=== PATIENT | female | born 1990 | race Caucasian/White ===

== ENCOUNTER 2016-07-23 20:03 | Emergency (ER) | payer MEDICAID ==
[~2016-07-23] VITALS: Ht 170.2 cm; Wt 87.5 kg
[~2016-07-23 20:03] MED LIST: ACHYD1T PO; AZIT-21 PO; DCS100C PO; DEPO-PROVERA; DESV50TA; GARDASIL; HYDR-3812 PO; IBP600T1 PO; IBP800T PO; MUPI22OI29 EXT; NAPR500T PO; NIFE20CA PO; NITR100C3 PO; OSLT75C PO; PRD20T PO; PREN1TAB4 PO
--- NOTE | 2016-07-23 20:46 | ED Abdominal Pain ---
General Chief Complaint: Abdominal/GI Problems Stated Complaint: AB PAIN NAUSEA Nursing Triage Note: intermittant luq abdominal pain since 07/19/16. worse tonight. Sepsis Screen: No Definite Risk Source of Information: Patient, RN Notes Reviewed Exam Limitations: No Limitations History of Present Illness Time Seen By Provider: 20:45 Initial Comments As above. Timing/Duration: 3-4 Days Severity/Quality: Moderate, Sharp, Stabbing Location: LUQ Radiation: No Radiation Activities at Onset: None Modifying Factors: Improves With Other (nothing) Associated Symptoms: Other ((+) nausea) Allergies and Home Medications Allergies Coded Allergies: cephalexin (Unverified Allergy, Mild, 03/15/09) Home Medications Ciprofloxacin HCl 500 Mg Tablet #14 500 MG PO BID Prescribed by: ARNIE MAY on 07/23/162216 Naproxen Sodium 550 Mg Tablet #20 550 MG PO Q12H PRN PRN PAIN Prescribed by: ARNIE MAY on 07/23/162216 Review of Systems Constitutional: see HPI Gastrointestinal: See HPI Abdominal Pain (LUQ) All Other Systems Reviewed Negative Unless Noted: Yes (Negative excepted noted.) Past Vyvwxjh-Fkcvgz-Laxraq Hx Patient Social History Alcohol Use: Occasionally Uses Recreational Drug Use: No Smoking Status: Former Smoker Type Used: Cigarettes Former Smoker/When Quit: Jun 02, 2012 Recent Foreign Travel: No Contact w/Someone Who Travel: No Recent Infectious Disease Expo: No Recent Hopitalizations: No Physical Abuse Screen: No Sexual Abuse: No Immunizations Up To Date Tetanus Booster (TDap): Unknown Date of Influenza Vaccine: May 07, 2012 Seasonal Allergies Seasonal Allergies: No Surgeries HX Surgeries: Yes (wisdom teeth) Surgeries: Section Respiratory Hx Respiratory Disorders: No Cardiovascular Hx Cardiac Disorders: No Neurological Hx Neurological Disorders: Yes Neurological Disorders: Headaches /Migraines Reproductive System : No Hx Reproductive Disorders: No (PID) Sexually Transmitted Disease: No Genitourinary Hx Genitourinary Disorders: No Gastrointestinal Hx Gastrointestinal Disorders: Yes Gastrointestinal Disorders: Gastroesophageal Reflux Musculoskeletal Hx Musculoskeletal Disorders: Yes (CHRONIC KNEE PAIN) Endocrine Hx Endocrine Disorders: Yes (Hypoglycemic) HEENT HX ENT Disorders: Yes Hearing Impairment: Hearing Aide Right Cancer Hx Cancer: No Psychosocial Hx Psychiatric Problems: Yes Behavioral Health Disorders: Anxiety Integumentary HX Skin/Integumentary Disorder: No Blood Transfusions Hx Blood Disorders: No Adverse Reaction to a Blood Tr: No Family Medical History Significant Family History: No Pertinent Family Hx, Cancer, Diabetes Physical Exam Vital Signs VS - Last 72 Hours, by Label 07/23/16 07/23/16 20:36 22:25 Temp 96.5 97.7 Pulse 81 68 Resp 18 16 B/P 126/59 Pulse Ox 99 99 O2 Delivery Room Air Room Air Capillary Refill : Less Than 3 Seconds General Appearance: WD/WN no apparent distress obese Respiratory: no respiratory distress Cardiovascular: regular rate, rhythm Gastrointestinal: softNo guarding, No rebound, tenderness (LUQ) Rectal: deferred Back: CVA tenderness (L) Neurologic/Psychiatric: no motor/sensory deficits alert oriented x 3 Skin: warm/dry Progress/Results/Core Measures Results/Orders Lab Results Laboratory Tests Test 07/23/16 21:00 Range/Units Alanine Aminotransferase (ALT/SGPT) 33 0-55 U/L Albumin 4.0 3.2-4.5 G/DL Alkaline Phosphatase 53 40-136 U/L Anion Gap 7 5-14 MMOL/L Aspartate Amino Transf (AST/SGOT) 18 5-34 U/L BUN/Creatinine Ratio 12 Basophils # (Auto) 0.0 0.0-0.1 10^3/uL Basophils (%) (Auto) 0 0-10 % Blood Urea Nitrogen 9 7-18 MG/DL Calcium Level 8.9 8.5-10.1 MG/DL Carbon Dioxide Level 22 21-32 MMOL/L Chloride Level 109 H 98-107 MMOL/L Creatinine 0.75 0.60-1.30 MG/DL Eosinophils # (Auto) 0.1 0.0-0.3 10^3/uL Eosinophils (%) (Auto) 2 0-10 % Estimat Glomerular Filtration Rate > 60 Glucose Level 106 H 70-105 MG/DL Hematocrit 39 35-52 % Hemoglobin 13.4 11.5-16.0 G/DL Lipase 26 8-78 U/L Lymphocytes # (Auto) 2.6 1.0-4.0 X 10^3 Lymphocytes (%) (Auto) 29 12-44 % Mean Corpuscular Hemoglobin 30 25-34 PG Mean Corpuscular Hemoglobin Concent 34 32-36 G/DL Mean Corpuscular Volume 86 80-99 FL Mean Platelet Volume 9.6 7.4-10.4 FL Monocytes # (Auto) 0.6 0.0-1.0 X 10^3 Monocytes (%) (Auto) 7 0-12 % Neutrophils # (Auto) 5.4 1.8-7.8 X 10^3 Neutrophils (%) (Auto) 62 42-75 % Platelet Count 254 130-400 10^3/uL Potassium Level 3.5 L 3.6-5.0 MMOL/L Red Blood Count 4.54 4.35-5.85 10^6/uL Red Cell Distribution Width 13.2 10.0-14.5 % Sodium Level 138 135-145 MMOL/L Total Bilirubin 0.4 0.1-1.0 MG/DL Total Protein 6.3 L 6.4-8.2 G/DL Urine Bacteria MODERATE H /HPF Urine Bilirubin NEGATIVE NEGATIVE Urine Casts NONE /LPF Urine Clarity SLIGHTLY CLOUDY Urine Color YELLOW Urine Crystals NONE /LPF Urine Culture Indicated YES Urine Glucose (UA) NEGATIVE NEGATIVE Urine Ketones NEGATIVE NEGATIVE Urine Leukocyte Esterase 3+ H NEGATIVE Urine Mucus NEGATIVE /LPF Urine Nitrite NEGATIVE NEGATIVE Urine Test NEGATIVE NEGATIVE Urine Protein NEGATIVE NEGATIVE Urine RBC NONE /HPF Urine RBC (Auto) NEGATIVE NEGATIVE Urine Specific [place] 1.010 L 1.016-1.022 Urine Squamous Epithelial Cells 25-50 H /HPF Urine Urobilinogen NORMAL NORMAL MG/DL Urine WBC 10-25 H /HPF Urine pH 8 5-9 White Blood Count 8.7 4.3-11.0 10^3/uL My Orders Orders-ARNIE MAY DO Saline Lock/Iv-Start (07/23/16 20:46) Cbc With Automated Diff (07/23/16 20:46) Comprehensive Metabolic Panel (07/23/16 20:46) Hcg,Qualitative Urine (07/23/16 20:46) Lipase (07/23/16 20:46) Ua Culture If Indicated (07/23/16 20:46) Urine Culture (07/23/16 21:00) Ketorolac Injection (Toradol Injection) (07/23/16 22:15) Ciprofloxacin Tablet (Cipro Tablet) (07/23/16 22:14) Medications Given in ED Current Medications Medications Dose Ordered Sig/Kathrine Route Start Time Stop Time Status Last Admin Dose Admin Ketorolac Tromethamine 30 mg ONCE ONCE IVP 07/23/16 22:15 07/23/16 22:16 DC 07/23/16 22:24 30 MG Vital Signs/I&O Vital Sign - Last 12Hours 07/23/16 07/23/16 20:36 22:25 Temp 96.5 97.7 Pulse 81 68 Resp 18 16 B/P 126/59 Pulse Ox 99 99 O2 Delivery Room Air Room Air Blood Pressure Mean: 81 Departure Impression Impression: Primary Impression: LUQ abdominal pain Additional Impression: UTI (urinary tract infection) Disposition: HOME, SELF-CARE Condition: Stable Departure-Patient Inst. Decision time for Depature: 22:18 Referrals: [facility] (PCP/Family) Primary Care Physician Patient Instructions: Urinary Tract Infection, Adult (DC) Scripts Naproxen Sodium (Anaprox Ds)550 Mg [id number] Mg PO Q12H PRN PAIN #20 TAB Ref 0 Prov:ARNIE MAY DO 07/23/16 Ciprofloxacin HCl (Cipro)500 Mg [id number] Mg PO BID UTI #14 TAB Ref 0 Prov:ARNIE MAY DO 07/23/16 ARNIE MAY DO Jul 23, 2016 20:46
[2016-07-23 21:17] LABS: BASOPHILS % (AUTO) 0 % (0-10); EOSINOPHILS # (AUTO) 0.1 10^3/uL (0.0-0.3); EOSINOPHILS % (AUTO) 2 % (0-10); LYMPHOCYTES # (AUTO) 2.6 X 10^3 (1.0-4.0); LYMPHOCYTES % (AUTO) 29 % (12-44); MEAN CORPUSCULAR HEMOGLOBIN 30 PG (25-34); MEAN CORPUSCULAR HGB CONC 34 G/DL (32-36); MEAN CORPUSCULAR VOLUME 86 FL (80-99); MEAN PLATELET VOLUME 9.6 FL (7.4-10.4); MONOCYTES # (AUTO) 0.6 X 10^3 (0.0-1.0); MONOCYTES % (AUTO) 7 % (0-12); NEUTROPHILS # (AUTO) 5.4 X 10^3 (1.8-7.8); NEUTROPHILS % (AUTO) 62 % (42-75); PLATELET COUNT 254 10^3/uL (130-400); RED BLOOD COUNT 4.54 10^6/uL (4.35-5.85); RED CELL DISTRIBUTION WIDTH 13.2 % (10.0-14.5); WHITE BLOOD COUNT 8.7 10^3/uL (4.3-11.0)
[2016-07-23 21:21] LABS: BILIRUBIN,URINE NEGATIVE (NEGATIVE); KETONES,URINE NEGATIVE (NEGATIVE); LEUKOCYTE ESTERASE ,URINE 3+ (NEGATIVE); NITRITE,URINE NEGATIVE (NEGATIVE); PH,URINE 8 (5-9); PROTEIN,URINE NEGATIVE (NEGATIVE); UROBILINOGEN,URINE NORMAL (NORMAL)
[2016-07-23 21:32] LABS: SQUAMOUS EPITHELIAL CELL,UR 25-50 /HPF
[2016-07-23 21:41] LABS: ALANINE AMINOTRANSFERASE 33 U/L (0-55); ANION GAP 7 MMOL/L (5-14); ASPARTATE AMINO TRANSFERASE 18 U/L (5-34); BILIRUBIN,TOTAL 0.4 MG/DL (0.1-1.0); BLOOD UREA NITROGEN 9 MG/DL (7-18); BUN/CREATININE RATIO 12; CALCIUM 8.9 MG/DL (8.5-10.1); CARBON DIOXIDE 22 MMOL/L (21-32); CHLORIDE 109 MMOL/L (98-107); CREATININE SERUM 0.75 MG/DL (0.60-1.30); GFR ESTIMATED > 60; GLUCOSE 106 MG/DL (70-105); LIPASE 26 U/L (8-78); POTASSIUM 3.5 MMOL/L (3.6-5.0); SODIUM 138 MMOL/L (135-145); TOTAL PROTEIN 6.3 G/DL (6.4-8.2)
[2016-07-23] MEDS ORDERED: CIPROFLOXACIN 500 MG (CIPRO) TABLET PO STA (22:14)
[2016-07-23] MEDS ORDERED: KETOROLAC 30 MG/ML VIAL IVP ONE (22:15)
[2016-07-23] MEDS ORDERED: NAPR550T PO (22:17)
[2016-07-23] MEDS ORDERED: CIPR-225 PO (22:17)
[2016-07-23 22:25] VITALS: BP 122/72
== END 2016-07-23 22:25 | disposition home or self-care (01) ==
LOC: EDUNIT# 20:03 → ER 20:06
DX: R10.12 Left upper quadrant pain (principal); N39.0 Urinary tract infection, site not specified
CPT/HCPCS: 36415; 80053; 81000; 83690; 84703; 85025; 87088; 96374

== ENCOUNTER 2017-01-20 21:48 | Emergency (ER) | payer MEDICAID ==
[~2017-01-20] VITALS: Ht 170.2 cm; Wt 87.7 kg
[~2017-01-20 21:48] MED LIST changes: +CIPR-225 PO; +NAPR550T PO
[2017-01-20] MEDS ORDERED: AMOX500C2 (21:57)
[2017-01-20] MEDS ORDERED: KETOROLAC 30 MG/ML VIAL IM ONE (22:15)
--- NOTE | 2017-01-20 22:16 | ED Lower Extremity ---
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 She was told to doesn't 8 she did some surgery for cartilage removal 1 with a surgeon but she got never underwent this. She has some swelling in her left knee and hasn't used ice and heating pads and 400 mg ibuprofen earlier today but this is all been marginally helpful. No other history of trauma. No nausea vomiting fever or chills diarrhea Allergies and Home Medications Allergies Coded Allergies: cephalexin (Unverified Allergy, Mild, 03/15/09) Home Medications Amoxicillin 500 Mg Capsule, #30 (Reported) Constitutional: No chills, No diaphoresis Respiratory: No cough, No short of breath Cardiovascular: No chest pain, No palpitations Gastrointestinal: No abdominal pain, No constipation Skin: No pruritus, No rash Past Csnvlre-Pognsx-Nalbtk Hx Patient Social History Alcohol Use: Occasionally Uses Recreational Drug Use: No Smoking Status: Former Smoker Type Used: Cigarettes Former Smoker/When Quit: Jun 02, 2012 Recent Foreign Travel: No Contact w/Someone Who Travel: No Recent Infectious Disease Expo: No Recent Hopitalizations: No Immunizations Up To Date Tetanus Booster (TDap): Unknown Date of Influenza Vaccine: May 07, 2012 Seasonal Allergies Seasonal Allergies: No Surgeries HX Surgeries: Yes (wisdom teeth) Surgeries: Section Respiratory Hx Respiratory Disorders: No Cardiovascular Hx Cardiac Disorders: No Neurological Hx Neurological Disorders: Yes Neurological Disorders: Headaches /Migraines Reproductive System Hx Reproductive Disorders: No (PID) Sexually Transmitted Disease: No Genitourinary Hx Genitourinary Disorders: No Gastrointestinal Hx Gastrointestinal Disorders: Yes Gastrointestinal Disorders: Gastroesophageal Reflux Musculoskeletal Hx Musculoskeletal Disorders: Yes (CHRONIC KNEE PAIN) Endocrine Hx Endocrine Disorders: Yes (Hypoglycemic) HEENT HX ENT Disorders: Yes Hearing Impairment: Hearing Aide Right Cancer Hx Cancer: No Psychosocial Hx Psychiatric Problems: Yes Behavioral Health Disorders: Anxiety Integumentary HX Skin/Integumentary Disorder: No Blood Transfusions Hx Blood Disorders: No Adverse Reaction to a Blood Tr: No Family Medical History Significant Family History: No Pertinent Family Hx, Cancer, Diabetes Physical Exam Vital Signs Vital Sign - Last 12Hours 01/20/17 21:53 Temp 98.7 Pulse 80 Resp 18 B/P (MAP) 135/65 Pulse Ox 97 O2 Delivery Room Air Capillary Refill : Less Than 3 Seconds General Appearance: WD/WN, no apparent distress Cardiovascular: normal peripheral pulses, regular rate, rhythm Respiratory: lungs clear, normal breath sounds Back: normal inspection, no vertebral tenderness Hips: bilateral hip non-tender, bilateral hip normal inspection, bilateral hip normal range of motion Legs: bilateral leg non-tender, bilateral leg normal inspection, bilateral leg normal range of motion Knees: right knee non-tender, right knee normal inspection, bilateral knee normal range of motion, right knee no evidence of injury, left knee bone tenderness (anterior medial and lateral tibial plateau tenderness), left knee joint effusion, left knee soft tissue tenderness, left knee swelling, left knee other (medial collateral ligament and lateral collateral ligaments are stable anterior cruciate ligament and PCL are stable. Tenderness directly palpating the meniscus. Antalgic gait.) Ankles: bilateral ankle non-tender, bilateral ankle normal inspection, bilateral ankle normal range of motion, bilateral ankle no evidence of injury Neurologic/Psychiatric: alert, oriented x 3 Skin: normal color, warm/dry Progress/Results/Core Measures Results/Orders My Orders Orders - ASHELY RODRIGUEZ Knee, Left, 3 Views (01/20/17 22:01) Ketorolac Injection (Toradol Injection) (01/20/17 22:15) Medications Given in ED Current Medications Medications Dose Ordered Sig/Kathrine Route Start Time Stop Time Status Last Admin Dose Admin Ketorolac Tromethamine 30 mg ONCE ONCE IM 01/20/17 22:15 01/20/17 22:16 DC 01/20/17 22:18 30 MG Vital Signs/I&O Vital Sign - Last 12Hours 01/20/17 21:53 Temp 98.7 Pulse 80 Resp 18 B/P (MAP) 135/65 Pulse Ox 97 O2 Delivery Room Air Blood Pressure Mean: 88 Progress Note : Time: 23:53 Progress Note History and exam consistent with possible meniscal tear. She'll need to follow up with orthopedics Monday. We'll set her up with pain medicine and she will need reduced work schedule to include sitting on the stool. We'll give her a prescription for a knee brace and wrap her with an Cristopher bandage tonight. Diagnostic Imaging Diagonstic Imaging: Xray Plain Films/CT/US/NM/MRI: knee Comments No evidence of osseous abnormality. Reviewed: Reviewed by Me Departure Impression Impression: Primary Impression: Knee pain Qualified Codes: M25.562 - Pain in left knee Disposition: 01 HOME, SELF-CARE Condition: Improved Departure-Patient Inst. Decision time for Depature: 23:54 Referrals: [facility] (PCP/Family) Primary Care Physician Patient Instructions: Knee Sprain (DC) Add. Discharge Instructions: You should apply ice up to 4 times a day for 20 minutes as needed. You can also use heat if that helps to the knee. You can use Tylenol 1000 mg every 8 hours and you can use ibuprofen 800 mg every 8 hours if it helps. An alternative ibuprofen would be Naprosyn 400-500 mg twice a day. If this does not control your pain you may also use the hydrocodone prescription that I will give you. Hydrocodone cause constipation and drowsiness. Be careful driving on it. If you have constipation you should use MiraLAX daily until your bowels are normal again. Monday morning you should call for [facility] at [phone] and get an appointment to be seen. You can also follow-up with her primary care physician if you have new symptoms. If you're pain becomes unbearable or you start having a fever or chills or other worrisome symptoms you should return to the ER. All discharge instructions reviewed with patient and/or family. Voiced understanding. Scripts Naproxen (Naprosyn) 500 Mg Tablet 500 MG PO BID for 14 Days, #28 TAB 0 Refills Prov: ASHELY RODRIGUEZ 01/20/17 Hydrocodone/Acetaminophen (Hydrocodon -Acetaminophen 5-325) 1 Each Tablet 1 EACH PO Q6H Y for BREAKTHROUGH PAIN, #15 TAB 0 Refills Prov: ASHELY RODRIGUEZ 01/20/17 Work/School Note: Work Release Form Date Seen in the Emergency Department: Jan 20, 2017 Return to Work: Jan 21, 2017 Restrictions: Need Release from Doctor Other Restrictions Listed Below: Work while sitting with knee elevated Copy Copies To 1: JOCE CHEUNG DO ASHELY RODRIGUEZ Jan 20, 2017 22:16
[2017-01-20] MEDS ORDERED: HYDR-3812 PO (23:57)
[2017-01-20] MEDS ORDERED: NAPR500T PO (23:57)
[2017-01-21 00:06] VITALS: BP 128/62
--- NOTE | 2017-01-21 07:22 | Diagnostic Imaging Report ---
INDICATION: Knee pain. EXAMINATION: Three views were obtained. FINDINGS: The alignment of the knee is normal. No fracture or dislocation. Soft tissues are unremarkable. IMPRESSION: No acute fracture or dislocation. Dictated by: Dictated on workstation # [id number]
== END 2017-01-21 00:06 | disposition home or self-care (01) ==
LOC: EDUNIT# 21:48 → ER 21:50
DX: M25.562 Pain in left knee (principal); F41.9 Anxiety disorder, unspecified; K21.9 Gastro-esophageal reflux disease without esophagitis; G43.909 Migraine, unspecified, not intractable, without status migrainosus; Z87.891 Personal history of nicotine dependence; Z97.4 Presence of external hearing-aid; X50.0XXA Overexertion from strenuous movement or load, initial encounter
CPT/HCPCS: 73562; 96372; 99284

== ENCOUNTER 2017-03-11 10:17 | Emergency (ER) | payer MEDICAID ==
[~2017-03-11] VITALS: Ht 170.2 cm; Wt 87.7 kg
[~2017-03-11 10:17] MED LIST changes: +AMOX500C2
--- NOTE | 2017-03-11 10:49 | ED Abdominal Pain ---
General Chief Complaint: Abdominal/GI Problems Stated Complaint: BACK AND LOWER R ABD SHARP TO DULL PAIN Nursing Triage Note: C/O R FLANK PAIN SINCE YESTERDAY. Sepsis Screen: No Definite Risk Source of Information: Patient Exam Limitations: No Limitations History of Present Illness Time Seen By Provider: 10:45 Initial Comments To ER with sharp right lower quadrant abdominal pain that started this morning. She states that this pain radiates to the low back. She has no dysuria. She has no bowel changes. She has nausea but no vomiting. No fevers or chills. Last menstrual period 2 weeks ago. Timing/Duration: 1-2 Days Severity/Quality: Moderate Location: RLQ Radiation: No Radiation Activities at Onset: None Associated Symptoms: Back Pain, No Fever/Chills, Nausea/Vomiting Allergies and Home Medications Allergies Coded Allergies: cephalexin (Unverified Allergy, Mild, 03/15/09) Review of Systems Constitutional: see HPI, No chills, No fever EENTM: No Symptoms Reported Respiratory: No Symptoms Reported Cardiovascular: No Symptoms Reported Gastrointestinal: See HPI, Denies Abdominal Pain Genitourinary: No Symptoms Reported Musculoskeletal: no symptoms reported Skin: no symptoms reported Psychiatric/Neurological: No Symptoms Reported Endocrine: No Symptoms Reported Hematologic/Lymphatic: No Symptoms Reported Past Jrsxjby-Juskjm-Jursap Hx Patient Social History Alcohol Use: Occasionally Uses Number of Drinks Today: AA Alcohol Beverage of Choice: Beer Recreational Drug Use: No Smoking Status: Current Everyday Smoker Type Used: Cigarettes Former Smoker, Quit: Jun 15, 2016 Recent Foreign Travel: No Contact w/Someone Who Travel: No Recent Infectious Disease Expo: No Recent Hopitalizations: No Immunizations Up To Date Tetanus Booster (TDap): Unknown Date of Influenza Vaccine: May 07, 2012 Seasonal Allergies Seasonal Allergies: No Surgeries History of Surgeries: Yes (wisdom teeth) Surgeries: Section Respiratory History of Respiratory Disorde: No Cardiovascular History of Cardiac Disorders: No Neurological History of Neurological Disord: Yes Neurological Disorders: Headaches /Migraines Reproductive System Hx Reproductive Disorders: No (PID) Sexually Transmitted Disease: No Gastrointestinal History of Gastrointestinal Di: Yes Gastrointestinal Disorders: Gastroesophageal Reflux Musculoskeletal History of Musculoskeletal Dis: Yes (CHRONIC KNEE PAIN) Endocrine History of Endocrine Disorders: Yes (Hypoglycemic) HEENT Hearing Impairment: Hearing Aide Right Cancer History of Cancer: No Psychosocial History of Psychiatric Problem: Yes Behavioral Health Disorders: Anxiety Integumentary History of Skin or Integumenta: No Blood Transfusions History of Blood Disorders: No Adverse Reaction to a Blood Tr: No Family Medical History Significant Family History: No Pertinent Family Hx, Cancer, Diabetes Physical Exam Vital Signs VS - Last 72 Hours, by Label 03/11/17 10:24 Temp 97.4 Pulse 77 Resp 18 B/P (MAP) 119/64 Pulse Ox 100 O2 Delivery Room Air Capillary Refill : Less Than 3 Seconds General Appearance: WD/WN, no apparent distress HEENT: PERRL/EOMI, normal ENT inspection Neck: non-tender, full range of motion Respiratory: normal breath sounds, no respiratory distress, no accessory muscle use Cardiovascular: regular rate, rhythm, no murmur Gastrointestinal: normal bowel sounds, soft, tenderness Extremities: normal range of motion, non-tender, normal inspection Neurologic/Psychiatric: alert, normal mood/affect, oriented x 3 Skin: normal color, warm/dry Progress/Results/Core Measures Results/Orders Lab Results Laboratory Tests Test 03/11/17 10:48 03/11/17 11:04 Range/Units Urine Color YELLOW Urine Clarity SLIGHTLY CLOUDY Urine pH 6.5 5-9 Urine Specific [place] 1.020 1.016-1.022 Urine Protein NEGATIVE NEGATIVE Urine Glucose (UA) NEGATIVE NEGATIVE Urine Ketones NEGATIVE NEGATIVE Urine Nitrite NEGATIVE NEGATIVE Urine Bilirubin NEGATIVE NEGATIVE Urine Urobilinogen NORMAL NORMAL MG/DL Urine Leukocyte Esterase 1+ H NEGATIVE Urine RBC (Auto) NEGATIVE NEGATIVE Urine RBC NONE /HPF Urine WBC RARE /HPF Urine Squamous Epithelial Cells 10-25 H /HPF Urine Crystals NONE /LPF Urine Bacteria NEGATIVE /HPF Urine Casts NONE /LPF Urine Mucus NEGATIVE /LPF Urine Culture Indicated NO White Blood Count 7.0 4.3-11.0 10^3/uL Red Blood Count 4.71 4.35-5.85 10^6/uL Hemoglobin 13.5 11.5-16.0 G/DL Hematocrit 41 35-52 % Mean Corpuscular Volume 87 80-99 FL Mean Corpuscular Hemoglobin 29 25-34 PG Mean Corpuscular Hemoglobin Concent 33 32-36 G/DL Red Cell Distribution Width 13.5 10.0-14.5 % Platelet Count 268 130-400 10^3/uL Mean Platelet Volume 9.4 7.4-10.4 FL Neutrophils (%) (Auto) 57 42-75 % Lymphocytes (%) (Auto) 33 12-44 % Monocytes (%) (Auto) 7 0-12 % Eosinophils (%) (Auto) 2 0-10 % Basophils (%) (Auto) 0 0-10 % Neutrophils # (Auto) 4.0 1.8-7.8 X 10^3 Lymphocytes # (Auto) 2.3 1.0-4.0 X 10^3 Monocytes # (Auto) 0.5 0.0-1.0 X 10^3 Eosinophils # (Auto) 0.2 0.0-0.3 10^3/uL Basophils # (Auto) 0.0 0.0-0.1 10^3/uL Sodium Level 140 135-145 MMOL/L Potassium Level 3.9 3.6-5.0 MMOL/L Chloride Level 107 98-107 MMOL/L Carbon Dioxide Level 24 21-32 MMOL/L Anion Gap 9 5-14 MMOL/L Blood Urea Nitrogen 9 7-18 MG/DL Creatinine 0.73 0.60-1.30 MG/DL Estimat Glomerular Filtration Rate > 60 BUN/Creatinine Ratio 12 Glucose Level 96 70-105 MG/DL Calcium Level 9.5 8.5-10.1 MG/DL Total Bilirubin 0.4 0.1-1.0 MG/DL Aspartate Amino Transf (AST/SGOT) 18 5-34 U/L Alanine Aminotransferase (ALT/SGPT) 23 0-55 U/L Alkaline Phosphatase 53 40-136 U/L Total Protein 6.8 6.4-8.2 GM/DL Albumin 4.0 3.2-4.5 GM/DL My Orders Orders - KANCHAN CHE PUBLICITY CONSULTANT Cbc With Automated Diff (03/11/17 10:41) Comprehensive Metabolic Panel (03/11/17 10:41) Ua Culture If Indicated (03/11/17 10:41) Urine Bedside (03/11/17 10:41) Saline Lock/Iv-Start (03/11/17 10:41) Ketorolac Injection (Toradol Injection) (03/11/17 10:45) Ns Iv 1000 Ml (Sodium Chloride 0.9%) (03/11/17 10:45) Ondansetron Injection (Zofran Injectio (03/11/17 10:45) Ct Abdomen/Pelvis W (03/11/17 11:10) Iohexol Injection (Omnipaque 350 Mg/Ml 1 (03/11/17 11:30) Ns (Ivpb) (Sodium Chloride 0.9% Ivpb Bag (03/11/17 11:30) Medications Given in ED Current Medications Medications Dose Ordered Sig/Kathrine Route Start Time Stop Time Status Last Admin Dose Admin Iohexol 100 ml ONCE ONCE IV 03/11/17 11:30 03/11/17 11:31 DC 03/11/17 11:57 100 ML Ondansetron HCl 4 mg ONCE ONCE IVP 03/11/17 10:45 03/11/17 10:46 DC 03/11/17 12:10 4 MG Sodium Chloride 100 ml ONCE ONCE IV 03/11/17 11:30 03/11/17 11:31 DC 03/11/17 11:57 80 ML Vital Signs/I&O Vital Sign - Last 12Hours 03/11/17 10:24 Temp 97.4 Pulse 77 Resp 18 B/P (MAP) 119/64 Pulse Ox 100 O2 Delivery Room Air Blood Pressure Mean: 82 Departure Impression Impression: Primary Impression: Nonspecific abdominal pain Disposition: 01 HOME, SELF-CARE Condition: Stable Departure-Patient Inst. Decision time for Depature: 12:30 Referrals: [facility] (PCP/Family) Primary Care Physician Patient Instructions: Acute Abdomen (Belly Pain), Adult (DC) Add. Discharge Instructions: 1. Return to ER for any concerns 2. See her doctor next week 3. All discharge instructions reviewed with patient and/or family. Voiced understanding. Work/School Note: Work Release Form Date Seen in the Emergency Department: Mar 11, 2017 Return to Work: Mar 13, 2017 KANCHAN CHE APRN Mar 11, 2017 10:49
[2017-03-11 10:54] LABS: BILIRUBIN,URINE NEGATIVE (NEGATIVE); KETONES,URINE NEGATIVE (NEGATIVE); LEUKOCYTE ESTERASE ,URINE 1+ (NEGATIVE); NITRITE,URINE NEGATIVE (NEGATIVE); PH,URINE 6.5 (5-9); PROTEIN,URINE NEGATIVE (NEGATIVE); UROBILINOGEN,URINE NORMAL (NORMAL)
[2017-03-11 11:05] LABS: WBC,URINE RARE /HPF
[2017-03-11 11:19] LABS: BASOPHILS % (AUTO) 0 % (0-10); EOSINOPHILS # (AUTO) 0.2 10^3/uL (0.0-0.3); EOSINOPHILS % (AUTO) 2 % (0-10); LYMPHOCYTES # (AUTO) 2.3 X 10^3 (1.0-4.0); LYMPHOCYTES % (AUTO) 33 % (12-44); MEAN CORPUSCULAR HEMOGLOBIN 29 PG (25-34); MEAN CORPUSCULAR HGB CONC 33 G/DL (32-36); MEAN CORPUSCULAR VOLUME 87 FL (80-99); MEAN PLATELET VOLUME 9.4 FL (7.4-10.4); MONOCYTES # (AUTO) 0.5 X 10^3 (0.0-1.0); MONOCYTES % (AUTO) 7 % (0-12); NEUTROPHILS % (AUTO) 57 % (42-75); PLATELET COUNT 268 10^3/uL (130-400); RED BLOOD COUNT 4.71 10^6/uL (4.35-5.85); RED CELL DISTRIBUTION WIDTH 13.5 % (10.0-14.5)
[2017-03-11 11:34] LABS: ALANINE AMINOTRANSFERASE 23 U/L (0-55); ANION GAP 9 MMOL/L (5-14); ASPARTATE AMINO TRANSFERASE 18 U/L (5-34); BILIRUBIN,TOTAL 0.4 MG/DL (0.1-1.0); BLOOD UREA NITROGEN 9 MG/DL (7-18); BUN/CREATININE RATIO 12; CALCIUM 9.5 MG/DL (8.5-10.1); CARBON DIOXIDE 24 MMOL/L (21-32); CHLORIDE 107 MMOL/L (98-107); CREATININE SERUM 0.73 MG/DL (0.60-1.30); GFR ESTIMATED > 60; GLUCOSE 96 MG/DL (70-105); POTASSIUM 3.9 MMOL/L (3.6-5.0); SODIUM 140 MMOL/L (135-145); TOTAL PROTEIN 6.8 GM/DL (6.4-8.2)
[2017-03-11] MEDS: IOHEXOL 350 MG/ML 100 ML (OMNIPAQUE 350) VIAL IV ONE (11:57)
[2017-03-11] MEDS: NS 100 ML (IVPB) BAG IV ONE (11:57)
[2017-03-11] MEDS: KETOROLAC 30 MG/ML VIAL IVP ONE (12:10)
[2017-03-11] MEDS: ONDANSETRON 4 MG/2 ML (SDV) Z0FRAN IVP ONE (12:10)
[2017-03-11] MEDS: NS IV 1000 ML 1,000 ML IV SCH (12:11)
--- NOTE | 2017-03-11 12:28 | Diagnostic Imaging Report ---
PROCEDURE: CT abdomen and pelvis with contrast. TECHNIQUE: Multiple contiguous axial images were obtained through the abdomen and pelvis after administration of intravenous contrast. INDICATION: Right lower quadrant abdominal pain. Back pain. COMPARISON: CT abdomen and pelvis without contrast 10/16/2014. FINDINGS: Lung bases are clear. Diffuse fatty infiltration of liver. The liver, gallbladder, pancreas, spleen, adrenals, kidneys, collecting systems, bladder and appendix are negative. No free intraperitoneal air or fluid. No lymphadenopathy. No evidence of bowel obstruction. No acute osseous findings. IMPRESSION: No acute CT findings in the abdomen or pelvis. Dictated by: Dictated on workstation # [id number]
[2017-03-11 12:45] VITALS: BP 122/67
== END 2017-03-11 12:50 | disposition home or self-care (01) ==
LOC: EDUNIT# 10:17 → ER 10:18
DX: R10.31 Right lower quadrant pain (principal); K21.9 Gastro-esophageal reflux disease without esophagitis; F41.9 Anxiety disorder, unspecified; G43.909 Migraine, unspecified, not intractable, without status migrainosus; Z87.891 Personal history of nicotine dependence; Z87.59 Personal history of other complications of pregnancy, childbirth and the puerperium; Z97.4 Presence of external hearing-aid
CPT/HCPCS: 36415; 74177; 80053; 81000; 84703; 85025

== ENCOUNTER 2017-10-24 21:20 | Emergency (ER) | payer MEDICAID ==
[~2017-10-24] VITALS: Ht 170.2 cm; Wt 87.7 kg
[~2017-10-24 21:20] MED LIST changes: +ACHD5005 PO; -HYDR-3812 PO; +NAPR-1070 PO; +NAPR-1071 PO; -NAPR500T PO; -NAPR550T PO
--- NOTE | 2017-10-24 21:39 | ED Lower Extremity ---
General Chief Complaint: Lower Extremity Stated Complaint: R FOOT INJ Nursing Triage Note: c/o R foot pain after dropping a storage cabinet on it Nursing Sepsis Screen: No Definite Risk Source: patient Exam Limitations: no limitations History of Present Illness Date Seen by Provider: Oct 24, 2017 Time Seen by Provider: 21:37 Initial Comments To ER with right lateral forefoot pain after dropping a storage cabinet on it at about 3 PM today. Onset: just prior to arrival Severity: moderate Pain/Injury Location: right foot Method of Injury: direct blow Modifying Factors: Worse With Movement Allergies and Home Medications Allergies Coded Allergies: cephalexin (Unverified Allergy, Mild, 03/15/09) Patient Home Medication List Home Medication List Reviewed: Yes Constitutional: see HPI EENTM: see HPI Respiratory: no symptoms reported Cardiovascular: no symptoms reported Genitourinary: no symptoms reported Musculoskeletal: see HPI Skin: no symptoms reported Psychiatric/Neurological: No Symptoms Reported Past Hdkoxeh-Ukefsh-Cxldqi Hx Patient Social History Alcohol Use: Denies Use Number of Drinks Today: AA Alcohol Beverage of Choice: Beer Recreational Drug Use: No Smoking Status: Former Smoker Type Used: Cigarettes Former Smoker, Quit: Jun 15, 2016 Recent Foreign Travel: No Contact w/Someone Who Travel: No Recent Infectious Disease Expo: No Recent Hopitalizations: No Physical Abuse: No Sexual Abuse: No Immunizations Up To Date Tetanus Booster (TDap): Unknown Date of Influenza Vaccine: May 07, 2012 Seasonal Allergies Seasonal Allergies: No Past Medical History Surgeries: Yes (wisdom teeth) Section Respiratory: No Cardiac: No Neurological: Yes Headaches /Migraines Reproductive Disorders: No (PID) Sexually Transmitted Disease: No Gastrointestinal: Yes Gastroesophageal Reflux Musculoskeletal: Yes (CHRONIC KNEE PAIN) Endocrine: Yes (Hypoglycemic) Hearing Impairment: Hearing Aide Right Cancer: No Psychosocial: Yes Anxiety Nursing Suicide Risk Score: 0 Integumentary: No Blood Disorders: No Adverse Reaction/Blood Tranf: No Family Medical History No Pertinent Family Hx, Cancer, Diabetes Physical Exam Vital Signs Vital Signs - First Documented 10/24/17 21:23 Temp 98.0 Pulse 76 Resp 18 B/P (MAP) 117/55 (75) Pulse Ox 100 Capillary Refill : Less Than 3 Seconds General Appearance: WD/WN, no apparent distress HEENT: PERRL/EOMI, normal ENT inspection Neck: non-tender, full range of motion Respiratory: no respiratory distress, no accessory muscle use Hips: bilateral hip non-tender, bilateral hip normal inspection, bilateral hip normal range of motion Legs: bilateral leg non-tender, bilateral leg normal inspection, bilateral leg normal range of motion Knees: bilateral knee non-tender, bilateral knee normal inspection, bilateral knee normal range of motion Ankles: bilateral ankle non-tender, bilateral ankle normal inspection, bilateral ankle normal range of motion Feet: right foot pain, right foot soft tissue tenderness, right foot other (a bit of ecchymosis over the distal third fourth and fifth meta-tarsals) Neurologic/Psychiatric: alert, normal mood/affect Skin: normal color, warm/dry Progress/Results/Core Measures My Orders Orders - KANCHAN CHE APRN Foot, Right, 3 View (10/24/17 21:30) Vital Signs/I&O 10/24/17 21:23 Temp 98.0 Pulse 76 Resp 18 B/P (MAP) 117/55 (75) Pulse Ox 100 Blood Pressure Mean: 75 Departure Impression Primary Impression: Contusion of foot Disposition: 01 HOME, SELF-CARE Condition: Stable Departure-Patient Inst. Decision time for Depature: 21:38 Referrals: [facility] (PCP/Family) Primary Care Physician Patient Instructions: Contusion (DC) Add. Discharge Instructions: 1. Ice pack 2. Tylenol and Motrin 3. Return to ER for any concerns All discharge instructions reviewed with patient and/or family. Voiced understanding. KANCHAN CHE APRN Oct 24, 2017 21:39
[2017-10-24 22:10] VITALS: BP 117/55
--- NOTE | 2017-10-24 22:18 | Diagnostic Imaging Report ---
EXAM: Right foot at 9:59 p.m. INDICATION: Foot pain 3 views were obtained. T COMPARISON: There are no prior studies available for comparison. FINDINGS: There is no fracture, dislocation or acute bony abnormality evident. On the lateral view, there is a small calcific density adjacent to the anterior margin of the talonavicular joint. I suspect that this is a sequela of prior trauma. The soft tissues are unremarkable. IMPRESSION: There is no evidence for an acute bony abnormality. Dictated by: Dictated on workstation # [id number]
== END 2017-10-24 22:10 | disposition home or self-care (01) ==
LOC: EDUNIT# 21:20 → ER 21:21
DX: S90.32XA Contusion of left foot, initial encounter (principal); G43.909 Migraine, unspecified, not intractable, without status migrainosus; K21.9 Gastro-esophageal reflux disease without esophagitis; F41.9 Anxiety disorder, unspecified; Z87.891 Personal history of nicotine dependence; Z87.59 Personal history of other complications of pregnancy, childbirth and the puerperium; Z87.01 Personal history of pneumonia (recurrent); W20.8XXA Other cause of strike by thrown, projected or falling object, initial encounter
CPT/HCPCS: 73630

== ENCOUNTER 2017-11-12 10:35 | Emergency (ER) | payer MEDICAID ==
[~2017-11-12] VITALS: Ht 170.2 cm; Wt 90.7 kg
[2017-11-12 11:55] LABS: BILIRUBIN,URINE NEGATIVE (NEGATIVE); CLARITY,URINE CLEAR; COLOR,URINE YELLOW; GLUCOSE, URINE (UA) NEGATIVE (NEGATIVE); KETONES,URINE NEGATIVE (NEGATIVE); LEUKOCYTE ESTERASE ,URINE NEGATIVE (NEGATIVE); NITRITE,URINE NEGATIVE (NEGATIVE); PH,URINE 7 (5-9); PROTEIN,URINE NEGATIVE (NEGATIVE); UROBILINOGEN,URINE NORMAL (NORMAL)
[2017-11-12 12:04] LABS: BACTERIA,URINE TRACE /HPF; SQUAMOUS EPITHELIAL CELL,UR 0-2 /HPF
[2017-11-12] MEDS ORDERED: KETOROLAC 60 MG/2 ML VIAL IM STA (12:16)
[2017-11-12] MEDS ORDERED: ORPHENADRINE 60 MG/2 ML (NORFLEX) AMP IM STA (12:16)
--- NOTE | 2017-11-12 12:29 | ED Back Pain ---
General Chief Complaint: Back Problems Stated Complaint: BACK PAIN Nursing Triage Note: pt reports low back pain since 11/03. she reports she was seen and tx at [facility] with no improvement. pt denies injury. Nursing Sepsis Screen: No Definite Risk Source of Information: Patient Exam Limitations: No Limitations History of Present Illness Date Seen by Provider: Nov 12, 2017 Time Seen by Provider: 12:00 Initial Comments 27-year-old female patient presents to the emergency department with complaints of low back pain beginning in 11/03/17. Denies any known recent injury. Reports pain radiates into the sacrum. Location: Lumbar Spine, Paraspinous Muscles Timing/Duration: Constant, Other (onset 11/03/17) Pain/Injury Location: Back Method of Injury: Unknown Modifying Factors: Worse With Movement Associated Symptoms: muscle spasms; No fever, No weakness, No numbness in legs/ feet, No tingling in legs/feet, No sensory/motor loss; lower back pain; No loss of bladder control, No loss of bowel control Allergies and Home Medications Allergies Coded Allergies: cyclobenzaprine (Verified Allergy, Intermediate, rash, 11/12/17) cephalexin (Unverified Allergy, Mild, 03/15/09) Home Medications Naproxen 500 Mg Tablet, 500 MG PO BID Prescribed by: BRE ADAMS on 11/12/17 1305 Orphenadrine Citrate 100 Mg Tablet.er, 100 MG PO BID PRN for SPASMS Prescribed by: BRE ADAMS on 11/12/17 1312 Prednisone 20 Mg Tab, 40 MG PO DAILY Prescribed by: BRE ADAMS on 11/12/17 1305 Tramadol HCl 50 Mg Tablet, 50 MG PO Q4H PRN for pain Prescribed by: BRE ADAMS on 11/12/17 1305 Patient Home Medication List Home Medication List Reviewed: Yes Constitutional: No chills, No fever, No malaise Respiratory: no symptoms reported Cardiovascular: no symptoms reported Gastrointestinal: No abdominal pain, No constipation, No diarrhea, No loss of appetite, No nausea, No vomiting Genitourinary: No decreased output, No dysuria, No frequency, No hematuria, No pain : No Musculoskeletal: see HPI, back pain; No joint pain Skin: no symptoms reported Psychiatric/Neurological: Denies Numbness, Denies Paresthesia, Denies Tingling , Denies Weakness All Other Systems Reviewed Negative Unless Noted: Yes (Negative excepted noted.) Past Xhdslol-Udtxoa-Jgpcmw Hx Patient Social History Alcohol Use: Occasionally Uses Number of Drinks Today: AA Alcohol Beverage of Choice: Beer Recreational Drug Use: No Smoking Status: Current Everyday Smoker Type Used: Cigarettes Former Smoker, Quit: Jun 15, 2016 2nd Hand Smoke Exposure: Yes Recent Foreign Travel: No Contact w/Someone Who Travel: No Recent Infectious Disease Expo: No Recent Hopitalizations: No Immunizations Up To Date Tetanus Booster (TDap): Unknown Date of Influenza Vaccine: May 07, 2012 Seasonal Allergies Seasonal Allergies: No Past Medical History Surgeries: Yes (wisdom teeth) Section Respiratory: No Cardiac: No Neurological: Yes Headaches /Migraines Reproductive Disorders: No (PID) Sexually Transmitted Disease: No Gastrointestinal: Yes Gastroesophageal Reflux Musculoskeletal: Yes (CHRONIC KNEE PAIN) Endocrine: Yes (Hypoglycemic) Hearing Impairment: Hearing Aide Right Cancer: No Psychosocial: Yes Anxiety Integumentary: No Blood Disorders: No Adverse Reaction/Blood Tranf: No Family Medical History Reviewed Nursing Family Hx No Pertinent Family Hx, Cancer, Diabetes Physical Exam Vital Signs Vital Signs - First Documented 11/12/17 11:00 Temp 97.4 Pulse 74 Resp 16 B/P (MAP) 138/74 (95) Pulse Ox 98 O2 Delivery Room Air Capillary Refill : Less Than 3 Seconds General Appearance: No Apparent Distress, WD/WN Cardiovascular: Regular Rate, Rhythm, No Edema, No Murmur, Normal Peripheral Pulses Respiratory: Lungs Clear, Normal Breath Sounds, No Accessory Muscle Use, No Respiratory Distress Gastrointestinal: Normal Bowel Sounds, No Organomegaly, Non Tender, Soft; No Distended Back: No CVA Tenderness, Vertebral Tenderness (lumbar and sacral tenderness. Tenderness noted over the SI joints bilaterally.) Extremity: Normal Capillary Refill, Normal Inspection, Normal Range of Motion, Non Tender, No Pedal Edema, Pelvis Stable Neurologic/Psychiatric: Alert, Oriented x3, No Motor/Sensory Deficits, Normal Mood/Affect Skin: Normal Color, Warm/Dry Progress/Results/Core Measures Lab Results Laboratory Tests Test 11/12/17 11:39 Range/Units Urine Color YELLOW Urine Clarity CLEAR Urine pH 7 5-9 Urine Specific [place] 1.010 L 1.016-1.022 Urine Protein NEGATIVE NEGATIVE Urine Glucose (UA) NEGATIVE NEGATIVE Urine Ketones NEGATIVE NEGATIVE Urine Nitrite NEGATIVE NEGATIVE Urine Bilirubin NEGATIVE NEGATIVE Urine Urobilinogen NORMAL NORMAL MG/DL Urine Leukocyte Esterase NEGATIVE NEGATIVE Urine RBC (Auto) NEGATIVE NEGATIVE Urine RBC NONE /HPF Urine WBC NONE /HPF Urine Squamous Epithelial Cells 0-2 /HPF Urine Crystals NONE /LPF Urine Bacteria TRACE /HPF Urine Casts NONE /LPF Urine Mucus NEGATIVE /LPF Urine Culture Indicated NO My Orders Orders - BRE ADAMS Ua Culture If Indicated (11/12/17 11:38) Urine Bedside (11/12/17 11:38) Ct Lumbar Spine Wo (11/12/17 12:13) Ct Pelvis Wo (11/12/17 12:13) Ketorolac Injection (Toradol Injection) (11/12/17 12:16) Orphenadrine Injection (Norflex Injectio (11/12/17 12:16) Vital Signs/I&O 11/12/17 11/12/17 11:00 13:29 Temp 97.4 97.4 Pulse 74 74 Resp 16 16 B/P (MAP) 138/74 (95) 138/74 (95) Pulse Ox 98 98 O2 Delivery Room Air Blood Pressure Mean: 95 Urine -Bedside: Negative Diagonstic Imaging: CT Plain Films/CT/US/NM/MRI: other (lumbar spine) Comments CT LUMBAR SPINE WO PROCEDURE: CT lumbar spine without contrast. TECHNIQUE: Multiple contiguous axial images were obtained through the lumbar spine without the use of intravenous contrast. Sagittal and coronal reformations were then performed. DATE: 11/12/2017. INDICATION: A 27-year-old female, lower back and sacral pain for 9 days. No known injury. COMPARISON: CT abdomen and pelvis 03/11. FINDINGS: The alignment of the lumbar spine is unremarkable. There is no identified pars interarticularis defect. There is no identified acute fracture. There is moderate disc height loss L5-S1 with posterior osteophytes. CT is limited for assessment of disc pathology as well as other non-bony causes of foraminal and spinal stenosis. The partially visualized portions of the sacroiliac joints are unremarkable in appearance at their upper aspect. There are limitations for soft tissue evaluation, particularly given degree of quantum mottle artifact. Impression: 1. No identified pars interarticularis defect or malalignment of the lumbar spine. 2. Moderate disc height loss at L5- S1 with posterior osteophytes at this level. CT is limited for assessment of disc pathology as well as non-bony causes of foraminal and spinal stenosis. Dictated on workstation # [id number] Reviewed: Reviewed by Me (radiology report reviewed by me) Diagonstic Imaging: CT Plain Films/CT/US/NM/MRI: pelvis (CT pelvis with attention to the sacrum) Comments CT PELVIS WO PROCEDURE: CT pelvis without contrast. TECHNIQUE: Multiple contiguous axial images were obtained through the pelvis without the use of intravenous contrast. Sagittal and coronal reformations were performed. DATE: . INDICATION: 27-year-old female, lower back and sacral pain for 9 days. No known injury. COMPARISON: CT abdomen and pelvis 03/11/2017. FINDINGS: The sacroiliac joints are unremarkable in appearance. There is no bone erosion. There is no bone ankylosis. There is no abnormal widening of the sacroiliac joints. There is no identified bone lesion. There is no acute fracture. There is no obvious soft tissue abnormality. There are limitations of soft tissue assessment given the degree of quantum mottle artifact present. There is moderate disc height loss at L5-S1 with posterior osteophytes. There are limitations for assessment of disc pathology as well as additional non-bony causes of foraminal and spinal stenosis on CT. IMPRESSION: 1. Unremarkable CT appearance of the sacrum and sacroiliac joints. 2. Moderate disc height loss at L5-S1 with posterior osteophytes. CT is limited for assessment of disc pathology as well as additional non-bony causes of foraminal and spinal stenosis. Dictated on workstation # [id number] Reviewed: Reviewed by Me (radiology report reviewed by me) Departure Communication (Admissions) All laboratory and diagnostic findings discussed with the patient. Patient reports feeling better at this time. Plan for discharge to home. Patient ambulated from the emergency department without difficulty. Impression Primary Impression: Strain of lumbar spine Qualified Codes: S39.012A - Strain of muscle, fascia and tendon of lower back , initial encounter Additional Impression: Sacroiliac joint pain Disposition: HOME, SELF-CARE Condition: Improved Departure-Patient Inst. Decision time for Depature: 13:04 Referrals: [facility] (PCP/Family) Primary Care Physician Patient Instructions: Low Back Pain (DC) Add. Discharge Instructions: All discharge instructions reviewed with patient and/or family. Voiced understanding. Medications as instructed. Tylenol extra strength over-the- counter as directed for pain. Use an ice pack or heating pad as needed for pain and muscle spasm. Avoid heavy lifting for 2-3 days. Then increase activity as tolerated. Follow-up with her family practitioner for recheck as an outpatient if no improvement in 7-10 days. They may want to do an MRI of the lumbar spine if symptoms persist. Return to the emergency department for worsened symptoms, numbness of the genitals, lower extremity weakness, bowel incontinence, bladder incontinence, or any other concerns. Scripts Orphenadrine Citrate (Orphenadrine Citrate) 100 Mg Tablet.er 100 MG PO BID PRN for SPASMS, #10 TAB 0 Refills Prov: BRE ADAMS 11/12/17 Naproxen (Naprosyn) 500 Mg Tablet 500 MG PO BID, #14 TAB 0 Refills Prov: BRE ADAMS 11/12/17 Tramadol HCl (Tramadol HCl) 50 Mg Tablet 50 MG PO Q4H PRN for pain, #10 TAB 0 Refills Prov: BRE ADAMS 11/12/17 Prednisone (Prednisone) 20 Mg Tab 40 MG PO DAILY, #10 TAB 0 Refills Prov: BRE ADAMS 11/12/17 BRE ADAMS Nov 12, 2017 12:29
--- NOTE | 2017-11-12 12:47 | Diagnostic Imaging Report ---
PROCEDURE: CT lumbar spine without contrast. TECHNIQUE: Multiple contiguous axial images were obtained through the lumbar spine without the use of intravenous contrast. Sagittal and coronal reformations were then performed. DATE: 11/12/2017. INDICATION: A 27-year-old female, lower back and sacral pain for 9 days. No known injury. COMPARISON: CT abdomen and pelvis 03/11/2017. FINDINGS: The alignment of the lumbar spine is unremarkable. There is no identified pars interarticularis defect. There is no identified acute fracture. There is moderate disc height loss L5-S1 with posterior osteophytes. CT is limited for assessment of disc pathology as well as other non-bony causes of foraminal and spinal stenosis. The partially visualized portions of the sacroiliac joints are unremarkable in appearance at their upper aspect. There are limitations for soft tissue evaluation, particularly given degree of quantum mottle artifact. Impression: 1. No identified pars interarticularis defect or malalignment of the lumbar spine. 2. Moderate disc height loss at L5-S1 with posterior osteophytes at this level. CT is limited for assessment of disc pathology as well as non-bony causes of foraminal and spinal stenosis. Dictated by: Dictated on workstation # [id number]
--- NOTE | 2017-11-12 12:50 | Diagnostic Imaging Report ---
PROCEDURE: CT pelvis without contrast. TECHNIQUE: Multiple contiguous axial images were obtained through the pelvis without the use of intravenous contrast. Sagittal and coronal reformations were performed. DATE: 11/12/2017. INDICATION: 27-year-old female, lower back and sacral pain for 9 days. No known injury. COMPARISON: CT abdomen and pelvis 03/11/2017. FINDINGS: The sacroiliac joints are unremarkable in appearance. There is no bone erosion. There is no bone ankylosis. There is no abnormal widening of the sacroiliac joints. There is no identified bone lesion. There is no acute fracture. There is no obvious soft tissue abnormality. There are limitations of soft tissue assessment given the degree of quantum mottle artifact present. There is moderate disc height loss at L5-S1 with posterior osteophytes. There are limitations for assessment of disc pathology as well as additional non-bony causes of foraminal and spinal stenosis on CT. IMPRESSION: 1. Unremarkable CT appearance of the sacrum and sacroiliac joints. 2. Moderate disc height loss at L5-S1 with posterior osteophytes. CT is limited for assessment of disc pathology as well as additional non-bony causes of foraminal and spinal stenosis. Dictated by: Dictated on workstation # [id number]
[2017-11-12] MEDS ORDERED: TRAM50TA2 PO (13:05)
[2017-11-12] MEDS ORDERED: PRD20T PO (13:05)
[2017-11-12] MEDS ORDERED: NAPR-1071 PO (13:05)
[2017-11-12] MEDS ORDERED: ORPH100T PO (13:12)
[2017-11-12 13:29] VITALS: BP 138/74
== END 2017-11-12 13:29 | disposition home or self-care (01) ==
LOC: EDUNIT# 10:35 → ER 10:37
DX: S39.012A Strain of muscle, fascia and tendon of lower back, initial encounter (principal); M53.3 Sacrococcygeal disorders, not elsewhere classified; K21.9 Gastro-esophageal reflux disease without esophagitis; G43.909 Migraine, unspecified, not intractable, without status migrainosus; F41.9 Anxiety disorder, unspecified; F17.210 Nicotine dependence, cigarettes, uncomplicated; Z87.59 Personal history of other complications of pregnancy, childbirth and the puerperium; Z88.8 Allergy status to other drugs, medicaments and biological substances; Z88.1 Allergy status to other antibiotic agents
CPT/HCPCS: 72131; 72192; 81000; 84703; 96372

== ENCOUNTER 2018-06-15 20:57 | Emergency (ER) | payer MEDICAID ==
[~2018-06-15] VITALS: Ht 170.2 cm; Wt 72.6 kg
[~2018-06-15 20:57] MED LIST changes: +ORPH100T PO; +TRAM50TA2 PO
--- NOTE | 2018-06-15 22:35 | ED Upper Extremity ---
General Chief Complaint: Upper Extremity Stated Complaint: LEFT HAND INJURY Nursing Triage Note: Pt reports helping friend moved and got L hand smashed between two boxes. Pt reports shooting pain in hand with movement of fingers. Nursing Sepsis Screen: No Definite Risk Source: patient Exam Limitations: no limitations History of Present Illness Date Seen by Provider: Jun 15, 2018 Time Seen by Provider: 22:33 Initial Comments Patient is a 27-year-old female who presents to emergency room with complaints of left hand pain after her hand was smashed between 2 boxes while helping a friend move. She reports this happened around 1430 this afternoon. Reports increasing pain with movement. Onset: this afternoon Pain/Injury Location: left hand Method of Injury: direct blow Modifying Factors: Worse With Movement Allergies and Home Medications Allergies Coded Allergies: cyclobenzaprine (Verified Allergy, Intermediate, rash, 11/12/17) cephalexin (Unverified Allergy, Mild, 03/15/09) Home Medications Naproxen 500 Mg Tablet, 500 MG PO BID Prescribed by: BRE ADAMS on 11/12/17 1305 Orphenadrine Citrate 100 Mg Tablet.er, 100 MG PO BID PRN for SPASMS Prescribed by: BRE ADAMS on 11/12/17 1312 Prednisone 20 Mg Tab, 40 MG PO DAILY Prescribed by: BRE ADAMS on 11/12/17 1305 Tramadol HCl 50 Mg Tablet, 50 MG PO Q4H PRN for pain Prescribed by: BRE ADAMS on 11/12/17 1305 Patient Home Medication List Home Medication List Reviewed: Yes Review of Systems Constitutional: no symptoms reported, see HPI Musculoskeletal: see HPI, joint pain (left hand pain) Past Meipxnv-Lfemfl-Vvhcyh Hx Past Med/Social Hx: Reviewed Nursing Past Med/Soc Hx Patient Social History Alcohol Beverage of Choice: Beer Type Used: Cigarettes Former Smoker, Quit: Jun 15, 2016 2nd Hand Smoke Exposure: Yes Recent Foreign Travel: No Contact w/Someone Who Travel: No Recent Infectious Disease Expo: No Recent Hopitalizations: No Immunizations Up To Date Tetanus Booster (TDap): Unknown Date of Influenza Vaccine: May 07, 2012 Seasonal Allergies Seasonal Allergies: No Past Medical History Surgeries: Yes (wisdom teeth) Section Respiratory: No Cardiac: No Neurological: Yes Headaches /Migraines Reproductive Disorders: No (PID) Sexually Transmitted Disease: No Gastrointestinal: Yes Gastroesophageal Reflux Musculoskeletal: Yes (CHRONIC KNEE PAIN) Endocrine: Yes (Hypoglycemic) Hearing Impairment: Hearing Aide Right Cancer: No Psychosocial: Yes Anxiety Integumentary: No Blood Disorders: No Adverse Reaction/Blood Tranf: No Family Medical History Reviewed Nursing Family Hx No Pertinent Family Hx, Cancer, Diabetes Physical Exam Vital Signs Vital Signs - First Documented 06/15/18 22:16 Temp 98.1 Pulse 80 Resp 12 B/P (MAP) 103/70 (81) Pulse Ox 100 O2 Delivery Room Air Capillary Refill : Less Than 3 Seconds Height, Weight, BMI Height: 5'7.00" Weight: 160lbs. 5.0oz. 72.636685ly; 29.44 BMI Method:Stated General Appearance: WD/WN, no apparent distress Cardiovascular: normal peripheral pulses, regular rate, rhythm, no edema, no gallop, no JVD, no murmur Respiratory: chest non-tender, lungs clear, normal breath sounds, no respiratory distress, no accessory muscle use Hand: normal inspection, non-tender, no evidence of injury, normal ROM, Bilateral Neurologic/Tendon: normal sensation, normal motor functions, normal tendon functions, responds to pain, no evidence tendon injury Neurologic/Psychiatric: alert, normal mood/affect, oriented x 3 Skin: normal color, warm/dry normal distal pulses and capillary refill. Progress/Results/Core Measures Results/Orders My Orders Vital Signs/I&O Blood Pressure Mean: 81 Diagnostic Imaging Diagonstic Imaging: Xray Plain Films/CT/US/NM/MRI: hand Comments NAME: DOREEN GARAY [facility] REC#: [id number] PT STATUS: DEP ER : 1990 PHYSICIAN: PARRIS HERRMANN ADMIT DATE: 06/15/18/ER Signed Date of Exam: 06/15/18 HAND, LEFT, 3 VIEWS INDICATION: Pain status post injury. COMPARISON: None. FINDINGS: Three views of the left hand show no fractures, dislocations, or other acute bony abnormalities identified. Joint spaces are well maintained throughout. The soft tissues appear unremarkable. No radiopaque foreign bodies are identified. IMPRESSION: No acute fractures or dislocations of the left hand. Dictated by: Dictated on workstation # [id number] Dict: 06/16/18 0538 Trans: 06/16/18 1014 Interpreted by: MEKA QUILES MD Electronically signed by: MEKA QUILES MD 06/16/18 1014 Reviewed: Reviewed by Me Departure Impression Primary Impression: Contusion of left hand Disposition: HOME, SELF-CARE Condition: Stable/Unchanged Departure-Patient Inst. Decision time for Depature: 22:50 Referrals: [facility] (PCP/Family) Primary Care Physician Patient Instructions: Contusion (DC) Add. Discharge Instructions: Ice to the sore areas at 20 minute intervals. Tylenol and ibuprofen as directed by the bottle for pain relief. Follow-up with her primary care provider within 1 week for recheck. Return back to the emergency room for any worsening symptoms or concerns as needed. All discharge instructions reviewed with patient and/or family. Voiced understanding. PARRIS HERRMANN Jun 15, 2018 22:35
[2018-06-15 23:03] VITALS: BP 103/70
--- NOTE | 2018-06-16 05:40 | Diagnostic Imaging Report ---
INDICATION: Pain status post injury. COMPARISON: None. FINDINGS: Three views of the left hand show no fractures, dislocations, or other acute bony abnormalities identified. Joint spaces are well maintained throughout. The soft tissues appear unremarkable. No radiopaque foreign bodies are identified. IMPRESSION: No acute fractures or dislocations of the left hand. Dictated by: Dictated on workstation # [id number]
== END 2018-06-15 23:06 | disposition home or self-care (01) ==
LOC: EDUNIT# 20:57 → ER 20:59
DX: S60.222A Contusion of left hand, initial encounter (principal); G43.909 Migraine, unspecified, not intractable, without status migrainosus; K21.9 Gastro-esophageal reflux disease without esophagitis; F41.9 Anxiety disorder, unspecified; Z87.448 Personal history of other diseases of urinary system; Z88.8 Allergy status to other drugs, medicaments and biological substances; Z79.52 Long term (current) use of systemic steroids; Z87.891 Personal history of nicotine dependence; Z98.890 Other specified postprocedural states; W22.09XA Striking against other stationary object, initial encounter
CPT/HCPCS: 73130

== ENCOUNTER 2018-11-14 16:28 | Emergency (ER) | payer MEDICAID ==
[~2018-11-14] VITALS: Ht 170.2 cm; Wt 63.6 kg
[2018-11-14] MEDS ORDERED: LATUDA 20 MG (16:38)
[2018-11-14] MEDS ORDERED: KETOROLAC 30 MG/ML VIAL IVP ONE (17:15)
--- NOTE | 2018-11-14 17:18 | ED Abdominal Pain ---
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 DENIES PAINFUL URINATION. STATES LAST DEPO SHOT WAS 10/17/18. Sepsis Screen: No Definite Risk Source of Information: Patient Exam Limitations: No Limitations History of Present Illness Date Seen by Provider: November 14, 2018 Time Seen by Provider: 17:06 Initial Comments Patient presents to ER by private conveyance with the 2 days of low pelvic pain radiating up midline. She says she's having her normal discharge non- malodorous. No dysuria. She still has her appendix and gallbladder. She denies any fevers or chills but she did have some nausea 3 days ago but no vomiting. No nausea now. He had PID before. She's in a monogamous relationship but the man lives in [place] and she says she is not him. She's been using Motrin with marginal results. She is in mild distress and rates her pain as a 10 out of 10. Last bowel movement was today, normal formed. Allergies and Home Medications Allergies Coded Allergies: cyclobenzaprine (Verified Allergy, Intermediate, rash, 11/12/17) cephalexin (Unverified Allergy, Mild, 03/15/09) Home Medications Naproxen 500 Mg Tablet, 500 MG PO BID Prescribed by: BRE ADAMS on 11/12/17 1305 Orphenadrine Citrate 100 Mg Tablet.er, 100 MG PO BID PRN for SPASMS Prescribed by: BRE ADAMS on 11/12/17 1312 Prednisone 20 Mg Tab, 40 MG PO DAILY Prescribed by: BRE ADAMS on 11/12/17 1305 Tramadol HCl 50 Mg Tablet, 50 MG PO Q4H PRN for pain Prescribed by: BRE ADAMS on 11/12/17 1305 Patient Home Medication List Home Medication List Reviewed: Yes Review of Systems Review of Systems Constitutional: No chills, No diaphoresis EENTM: No Blurred Vision, No Double Vision Respiratory: Denies Cough, Denies Shortness of Air Cardiovascular: Denies Chest Pain, Denies Edema Gastrointestinal: Denies Constipated; Nausea; Denies Vomiting Genitourinary: Denies Burning; Discharge; Denies Drainage Musculoskeletal: No back pain, No joint pain Skin: No pruritus, No rash Psychiatric/Neurological: Denies Headache, Denies Numbness, Denies Paresthesia Past Rcvjedd-Rlixxs-Gplgjn Hx Patient Social History Alcohol Use: Occasionally Uses Number of Drinks Today: AA Alcohol Beverage of Choice: Beer Recreational Drug Use: No Smoking Status: Current Everyday Smoker Type Used: Cigarettes Former Smoker, Quit: Jun 15, 2016 2nd Hand Smoke Exposure: Yes Recent Foreign Travel: No Contact w/Someone Who Travel: No Recent Infectious Disease Expo: No Recent Hopitalizations: No Immunizations Up To Date Tetanus Booster (TDap): Unknown Date of Influenza Vaccine: May 07, 2012 Seasonal Allergies Seasonal Allergies: No Past Medical History Surgeries: Yes (wisdom teeth) Section Respiratory: No Cardiac: No Neurological: Yes Headaches /Migraines Reproductive Disorders: No (PID) Sexually Transmitted Disease: No Gastrointestinal: Yes Gastroesophageal Reflux Musculoskeletal: Yes (CHRONIC KNEE PAIN) Endocrine: Yes (Hypoglycemic) Hearing Impairment: Hearing Aide Right Cancer: No Psychosocial: Yes Anxiety Integumentary: No Blood Disorders: No Adverse Reaction/Blood Tranf: No Family Medical History No Pertinent Family Hx, Cancer, Diabetes Physical Exam Vital Signs Vital Signs - First Documented 11/14/18 16:34 Temp 98.4 Pulse 73 Resp 20 B/P (MAP) 102/51 (68) Pulse Ox 100 O2 Delivery Room Air Capillary Refill : Less Than 3 Seconds Height/Weight/BMI Height: 5'7.00" Weight: 140lbs. 2.0oz. [id number]; 29.44 BMI Method:Stated General Appearance: WD/WN, mild distress HEENT: PERRL/EOMI, pharynx normal Neck: full range of motion, normal inspection Respiratory: chest non-tender, no respiratory distress, no accessory muscle use Cardiovascular: normal peripheral pulses, regular rate, rhythm Gastrointestinal: normal bowel sounds, tenderness (suprapubic) Extremities: normal range of motion, non-tender, normal capillary refill Pelvic: normal external exam, other (no vaginal discharge noted.) Neurologic/Psychiatric: alert, normal mood/affect, oriented x 3 Skin: normal color, warm/dry Progress/Results/Core Measures Results/Orders Lab Results Laboratory Tests Test 11/14/18 16:55 11/14/18 17:10 11/14/18 17:50 Range/Units Urine Color YELLOW Urine Clarity CLEAR Urine pH 5 5-9 Urine Specific [place] 1.025 H 1.016-1.022 Urine Protein NEGATIVE NEGATIVE Urine Glucose (UA) NEGATIVE NEGATIVE Urine Ketones 3+ H NEGATIVE Urine Nitrite POSITIVE H NEGATIVE Urine Bilirubin NEGATIVE NEGATIVE Urine Urobilinogen NORMAL NORMAL MG/DL Urine Leukocyte Esterase 2+ H NEGATIVE Urine RBC (Auto) NEGATIVE NEGATIVE Urine RBC NONE /HPF Urine WBC 5-10 H /HPF Urine Squamous Epithelial Cells 10-25 H /HPF Urine Crystals NONE /LPF Urine Bacteria FEW H /HPF Urine Casts NONE /LPF Urine Mucus NEGATIVE /LPF Urine Culture Indicated YES White Blood Count 8.0 4.3-11.0 10^3/uL Red Blood Count 4.65 4.35-5.85 10^6/uL Hemoglobin 14.0 11.5-16.0 G/DL Hematocrit 41 35-52 % Mean Corpuscular Volume 88 80-99 FL Mean Corpuscular Hemoglobin 30 25-34 PG Mean Corpuscular Hemoglobin Concent 34 32-36 G/DL Red Cell Distribution Width 13.4 10.0-14.5 % Platelet Count 255 130-400 10^3/uL Mean Platelet Volume 9.4 7.4-10.4 FL Neutrophils (%) (Auto) 52 42-75 % Lymphocytes (%) (Auto) 38 12-44 % Monocytes (%) (Auto) 7 0-12 % Eosinophils (%) (Auto) 4 0-10 % Basophils (%) (Auto) 1 0-10 % Neutrophils # (Auto) 4.1 1.8-7.8 X 10^3 Lymphocytes # (Auto) 3.0 1.0-4.0 X 10^3 Monocytes # (Auto) 0.5 0.0-1.0 X 10^3 Eosinophils # (Auto) 0.3 0.0-0.3 10^3/uL Basophils # (Auto) 0.0 0.0-0.1 10^3/uL Sodium Level 140 135-145 MMOL/L Potassium Level 3.3 L 3.6-5.0 MMOL/L Chloride Level 109 H 98-107 MMOL/L Carbon Dioxide Level 22 21-32 MMOL/L Anion Gap 9 5-14 MMOL/L Blood Urea Nitrogen 8 7-18 MG/DL Creatinine 0.84 0.60-1.30 MG/DL Estimat Glomerular Filtration Rate > 60 BUN/Creatinine Ratio 10 Glucose Level 93 70-105 MG/DL Calcium Level 9.8 8.5-10.1 MG/DL Corrected Calcium 9.4 8.5-10.1 MG/DL Total Bilirubin 0.6 0.1-1.0 MG/DL Aspartate Amino Transf (AST/SGOT) 18 5-34 U/L Alanine Aminotransferase (ALT/SGPT) 19 0-55 U/L Alkaline Phosphatase 46 40-136 U/L C-Reactive Protein High Sensitivity 0.13 0.00-0.50 MG/DL Total Protein 6.8 6.4-8.2 GM/DL Albumin 4.5 3.2-4.5 GM/DL My Orders Orders - ASHELY RODRIGUEZ Bhavesh Cbc With Automated Diff (11/14/18 17:13) Hs C Reactive Protein (11/14/18 17:13) Comprehensive Metabolic Panel (11/14/18 17:13) Neisseria Gonorrhea Swab (11/14/18 17:13) Chlam Dna Probe (11/14/18 17:13) Ua Culture If Indicated (11/14/18 17:13) Urine Bedside (11/14/18 17:13) Ketorolac Injection (Toradol Injection) (11/14/18 17:15) Wet Prep (11/14/18 17:19) Urine Culture (11/14/18 16:55) Medications Given in ED Current Medications Medications Dose Ordered Sig/Kathrine Route Start Time Stop Time Status Last Admin Dose Admin Ketorolac Tromethamine 30 mg ONCE ONCE IVP 11/14/18 17:15 11/14/18 17:16 DC 11/14/18 17:21 30 MG Vital Signs/I&O 11/14/18 11/14/18 16:34 17:21 Temp 98.4 98.4 Pulse 73 Resp 20 B/P (MAP) 102/51 (68) Pulse Ox 100 O2 Delivery Room Air Blood Pressure Mean: 68 Progress Progress Note #1: Time: 17:21 Progress Note We'll check some urine and labs get a wet prep and GC chlamydia DNA probes. If Everything else looks okay then we will just treat her for PID. If the white count is up then we will get a CT of her abdomen/pelvis. Progress Note #2: Time: 18:15 Progress Note No elevation in the white cells or markers of inflammation so. His last likely. While she has some contaminants and she also has nitrite seen on her urinalysis and she is tender over her suprapubic region so we'll treat her with Bactrim for a bladder infection. Wet prep was negative. Departure Impression Primary Impression: Urinary tract infection Qualified Codes: N30.00 - Acute cystitis without hematuria Disposition: HOME, SELF-CARE Condition: Stable Departure-Patient Inst. Decision time for Depature: 18:16 Referrals: [facility] (PCP/Family) Primary Care Physician Patient Instructions: Urinary Tract Infection, Adult (DC) Add. Discharge Instructions: Drink lots of fluids and take the Bactrim one capsule with food twice a day for the next week. We still have a few labs that are send outs and should have some results by Monday or early next Monday. If they are positive we will call you with appropriate antibiotics. If the culture shows that Bactrim is inappropriate for your bladder infection we will call out a new antibiotic. Tylenol and/or Motrin as necessary for pain. Heating pads and finally you can use AZO/Pyridium for the pain. All discharge instructions reviewed with patient and/or family. Voiced understanding. Scripts Sulfamethoxazole/Trimethoprim (Bactrim Ds Tablet) 1 Each Tablet 1 EACH PO BID for 7 Days, #14 TAB 0 Refills Prov: ASHELY RODRIGUEZ 11/14/18 Work/School Note: Work Release Form Date Seen in the Emergency Department: November 14, 2018 Return to Work: November 15, 2018 Restrictions: No Restrictions ASHELY RODRIGUEZ November 14, 2018 17:18
[2018-11-14 17:19] LABS: BASOPHILS % (AUTO) 1 % (0-10); EOSINOPHILS # (AUTO) 0.3 10^3/uL (0.0-0.3); EOSINOPHILS % (AUTO) 4 % (0-10); HEMATOCRIT 41 % (35-52); LYMPHOCYTES % (AUTO) 38 % (12-44); MEAN CORPUSCULAR HEMOGLOBIN 30 PG (25-34); MEAN CORPUSCULAR HGB CONC 34 G/DL (32-36); MEAN CORPUSCULAR VOLUME 88 FL (80-99); MEAN PLATELET VOLUME 9.4 FL (7.4-10.4); MONOCYTES # (AUTO) 0.5 X 10^3 (0.0-1.0); MONOCYTES % (AUTO) 7 % (0-12); NEUTROPHILS # (AUTO) 4.1 X 10^3 (1.8-7.8); NEUTROPHILS % (AUTO) 52 % (42-75); PLATELET COUNT 255 10^3/uL (130-400); RED CELL DISTRIBUTION WIDTH 13.4 % (10.0-14.5)
[2018-11-14 17:20] LABS: BILIRUBIN,URINE NEGATIVE (NEGATIVE); CLARITY,URINE CLEAR; COLOR,URINE YELLOW; GLUCOSE, URINE (UA) NEGATIVE (NEGATIVE); KETONES,URINE 3+ (NEGATIVE); LEUKOCYTE ESTERASE ,URINE 2+ (NEGATIVE); NITRITE,URINE POSITIVE (NEGATIVE); PH,URINE 5 (5-9); PROTEIN,URINE NEGATIVE (NEGATIVE); UROBILINOGEN,URINE NORMAL (NORMAL)
[2018-11-14 17:31] LABS: BACTERIA,URINE FEW /HPF
[2018-11-14 17:39] LABS: ALANINE AMINOTRANSFERASE 19 U/L (0-55); ALBUMIN 4.5 GM/DL (3.2-4.5); ALKALINE PHOSPHATASE 46 U/L (40-136); BILIRUBIN,TOTAL 0.6 MG/DL (0.1-1.0); BUN/CREATININE RATIO 10; CALCIUM 9.8 MG/DL (8.5-10.1); CARBON DIOXIDE 22 MMOL/L (21-32); CHLORIDE 109 MMOL/L (98-107); CREATININE SERUM 0.84 MG/DL (0.60-1.30); GFR ESTIMATED > 60; GLUCOSE 93 MG/DL (70-105); POTASSIUM 3.3 MMOL/L (3.6-5.0); SODIUM 140 MMOL/L (135-145); TOTAL PROTEIN 6.8 GM/DL (6.4-8.2)
[2018-11-14] MEDS ORDERED: SULF1TAB35 PO (18:18)
[2018-11-14 18:28] VITALS: BP 102/51
== END 2018-11-14 18:28 | disposition home or self-care (01) ==
LOC: EDUNIT# 16:28 → ER 16:29
DX: N39.0 Urinary tract infection, site not specified (principal); G43.909 Migraine, unspecified, not intractable, without status migrainosus; K21.9 Gastro-esophageal reflux disease without esophagitis; F41.9 Anxiety disorder, unspecified; Z88.1 Allergy status to other antibiotic agents; Z88.8 Allergy status to other drugs, medicaments and biological substances; Z79.52 Long term (current) use of systemic steroids; Z87.891 Personal history of nicotine dependence; Z87.448 Personal history of other diseases of urinary system; Z98.890 Other specified postprocedural states
CPT/HCPCS: 36415; 80053; 81000; 84703; 85025; 86141; 87077; 87088; 87186; 87210; 87491; 87591; 99284

== ENCOUNTER 2019-02-26 23:33 | Emergency (ER) | payer MEDICAID ==
[~2019-02-26] VITALS: Ht 170.2 cm; Wt 62.6 kg
[~2019-02-26 23:33] MED LIST changes: +LATUDA 20 MG; +SULF1TAB35 PO
[2019-02-27 00:58] LABS: BILIRUBIN,URINE NEGATIVE (NEGATIVE); CLARITY,URINE VERY CLOUDY; COLOR,URINE YELLOW; GLUCOSE, URINE (UA) NEGATIVE (NEGATIVE); KETONES,URINE NEGATIVE (NEGATIVE); LEUKOCYTE ESTERASE ,URINE 3+ (NEGATIVE); NITRITE,URINE NEGATIVE (NEGATIVE); PH,URINE 6 (5-9); PROTEIN,URINE NEGATIVE (NEGATIVE); UROBILINOGEN,URINE NORMAL (NORMAL)
[2019-02-27 01:07] LABS: BACTERIA,URINE MODERATE /HPF; RBC,URINE RARE /HPF; SQUAMOUS EPITHELIAL CELL,UR 25-50 /HPF
[2019-02-27 02:12] LABS: BASOPHILS # (AUTO) 0.1 10^3/uL (0.0-0.1); BASOPHILS % (AUTO) 1 % (0-10); EOSINOPHILS # (AUTO) 0.9 10^3/uL (0.0-0.3); EOSINOPHILS % (AUTO) 10 % (0-10); HEMATOCRIT 42 % (35-52); HEMOGLOBIN 14.1 G/DL (11.5-16.0); LYMPHOCYTES # (AUTO) 3.9 X 10^3 (1.0-4.0); LYMPHOCYTES % (AUTO) 43 % (12-44); MEAN CORPUSCULAR HEMOGLOBIN 31 PG (25-34); MEAN CORPUSCULAR HGB CONC 34 G/DL (32-36); MEAN CORPUSCULAR VOLUME 90 FL (80-99); MEAN PLATELET VOLUME 9.7 FL (7.4-10.4); MONOCYTES # (AUTO) 0.6 X 10^3 (0.0-1.0); MONOCYTES % (AUTO) 6 % (0-12); NEUTROPHILS # (AUTO) 3.7 X 10^3 (1.8-7.8); NEUTROPHILS % (AUTO) 40 % (42-75); PLATELET COUNT 243 10^3/uL (130-400); RED CELL DISTRIBUTION WIDTH 12.8 % (10.0-14.5); WHITE BLOOD COUNT 9.1 10^3/uL (4.3-11.0)
[2019-02-27 02:31] LABS: ALANINE AMINOTRANSFERASE 12 U/L (0-55); ALKALINE PHOSPHATASE 48 U/L (40-136); BILIRUBIN,TOTAL 0.3 MG/DL (0.1-1.0); BUN/CREATININE RATIO 10; CALCIUM 9.1 MG/DL (8.5-10.1); CARBON DIOXIDE 20 MMOL/L (21-32); CHLORIDE 111 MMOL/L (98-107); CREATININE SERUM 0.77 MG/DL (0.60-1.30); GFR ESTIMATED > 60; GLUCOSE 92 MG/DL (70-105); SODIUM 141 MMOL/L (135-145); TOTAL PROTEIN 6.5 GM/DL (6.4-8.2)
[2019-02-27] MEDS ORDERED: CIPR500T4 PO (03:08)
[2019-02-27] MEDS ORDERED: ONDA4TAB11 PO (03:08)
--- NOTE | 2019-02-27 03:09 | ED Abdominal Pain ---
General Chief Complaint: Abdominal/GI Problems Stated Complaint: LOWER ABD & PELVIC PAIN,N,V Nursing Triage Note: Pt amb to room #7 w/o difficulty. a&ox4. C/o pelvic and lower abd discomfort. Pt reports symptoms have been intermittent for apporx x3 wks. Pt reports symptoms to be associated with nausea. Denies urinary symptoms. Pt reports she missed her BC shot (Depo) in December 2018. Sepsis Screen: No Definite Risk Source of Information: Patient Exam Limitations: No Limitations History of Present Illness Date Seen by Provider: Feb 27, 2019 Time Seen by Provider: 00:18 Initial Comments This 28-year-old young lady presents to the emergency room with complaints of lower abdominal pain and nausea and vomiting intermittently for about 3 weeks. She reports missing her Depo-Provera injection in December. She continues to be sexually active. She denies any vaginal symptoms. She denies urinary symptoms. Temperature was 100.6 on assessment. Allergies and Home Medications Allergies Coded Allergies: cyclobenzaprine (Verified Allergy, Intermediate, rash, 11/12/17) cephalexin (Unverified Allergy, Mild, 03/15/09) Home Medications Ciprofloxacin HCl 500 Mg Tablet, 500 MG PO BID Prescribed by: KULDEEP HURTADO on 02/27/19 0308 Naproxen 500 Mg Tablet, 500 MG PO BID Prescribed by: BRE ADAMS on 11/12/17 1305 Ondansetron 4 Mg Tab.rapdis, 4 MG PO Q4H PRN for NAUSEA/VOMITING-1ST LINE Prescribed by: KULDEEP HURTADO on 02/27/19 0308 Orphenadrine Citrate 100 Mg Tablet.er, 100 MG PO BID PRN for SPASMS Prescribed by: BRE ADAMS on 11/12/17 1312 Prednisone 20 Mg Tab, 40 MG PO DAILY Prescribed by: BRE ADAMS on 11/12/17 1305 Sulfamethoxazole/Trimethoprim 1 Each Tablet, 1 EACH PO BID Prescribed by: ASHELY RODRIGUEZ on 11/14/18 1818 Tramadol HCl 50 Mg Tablet, 50 MG PO Q4H PRN for pain Prescribed by: BRE ADAMS on 11/12/17 1305 Patient Home Medication List Home Medication List Reviewed: Yes Review of Systems Review of Systems Constitutional: see HPI EENTM: No Symptoms Reported Respiratory: No Symptoms Reported Cardiovascular: No Symptoms Reported Gastrointestinal: See HPI Genitourinary: See HPI Musculoskeletal: no symptoms reported Skin: no symptoms reported Psychiatric/Neurological: No Symptoms Reported Endocrine: No Symptoms Reported Hematologic/Lymphatic: No Symptoms Reported Past Mwvehmj-Pmzxyr-Vbwzeq Hx Past Med/Social Hx: Reviewed Nursing Past Med/Soc Hx Patient Social History Alcohol Use: Rarely Uses Number of Drinks Today: AA Alcohol Beverage of Choice: Beer Recreational Drug Use: No Smoking Status: Former Smoker Type Used: Cigarettes Former Smoker, Quit: Jun 15, 2016 2nd Hand Smoke Exposure: Yes Recent Foreign Travel: No Contact w/Someone Who Travel: No Recent Infectious Disease Expo: No Recent Hopitalizations: No Immunizations Up To Date Tetanus Booster (TDap): Unknown Date of Influenza Vaccine: May 07, 2012 Seasonal Allergies Seasonal Allergies: No Past Medical History Surgeries: Yes (wisdom teeth) Section Respiratory: No Cardiac: No Neurological: Yes Headaches /Migraines Reproductive Disorders: No (PID) Sexually Transmitted Disease: No Gastrointestinal: Yes Gastroesophageal Reflux Musculoskeletal: Yes (CHRONIC KNEE PAIN) Endocrine: Yes (Hypoglycemic) Hearing Impairment: Hearing Aide Right Cancer: No Psychosocial: Yes Anxiety Integumentary: No Blood Disorders: No Adverse Reaction/Blood Tranf: No Family Medical History No Pertinent Family Hx, Cancer, Diabetes Physical Exam Vital Signs Vital Signs - First Documented 02/27/19 00:44 Temp 100.6 Pulse 75 Resp 17 B/P (MAP) 105/67 (80) Pulse Ox 100 O2 Delivery Room Air Capillary Refill : Less Than 3 Seconds Height/Weight/BMI Height: 5'7.00" Weight: 138lbs. 2.0oz. 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, no motor/sensory deficits, alert, normal mood/affect, oriented x 3 Skin: normal color, warm/dry Progress/Results/Core Measures Results/Orders Lab Results Laboratory Tests Test 02/27/19 00:45 02/27/19 02:00 Range/Units Urine Color YELLOW Urine Clarity VERY CLOUDY H Urine pH 6 5-9 Urine Specific [place] 1.010 L 1.016-1.022 Urine Protein NEGATIVE NEGATIVE Urine Glucose (UA) NEGATIVE NEGATIVE Urine Ketones NEGATIVE NEGATIVE Urine Nitrite NEGATIVE NEGATIVE Urine Bilirubin NEGATIVE NEGATIVE Urine Urobilinogen NORMAL NORMAL MG/DL Urine Leukocyte Esterase 3+ H NEGATIVE Urine RBC (Auto) NEGATIVE NEGATIVE Urine RBC RARE /HPF Urine WBC 10-25 H /HPF Urine Squamous Epithelial Cells 25-50 H /HPF Urine Crystals NONE /LPF Urine Bacteria MODERATE H /HPF Urine Casts NONE /LPF Urine Mucus NEGATIVE /LPF Urine Culture Indicated YES Urine Test NEGATIVE NEGATIVE White Blood Count 9.1 4.3-11.0 10^3/uL Red Blood Count 4.63 4.35-5.85 10^6/uL Hemoglobin 14.1 11.5-16.0 G/DL Hematocrit 42 35-52 % Mean Corpuscular Volume 90 80-99 FL Mean Corpuscular Hemoglobin 31 25-34 PG Mean Corpuscular Hemoglobin Concent 34 32-36 G/DL Red Cell Distribution Width 12.8 10.0-14.5 % Platelet Count 243 130-400 10^3/uL Mean Platelet Volume 9.7 7.4-10.4 FL Neutrophils (%) (Auto) 40 L 42-75 % Lymphocytes (%) (Auto) 43 12-44 % Monocytes (%) (Auto) 6 0-12 % Eosinophils (%) (Auto) 10 0-10 % Basophils (%) (Auto) 1 0-10 % Neutrophils # (Auto) 3.7 1.8-7.8 X 10^3 Lymphocytes # (Auto) 3.9 1.0-4.0 X 10^3 Monocytes # (Auto) 0.6 0.0-1.0 X 10^3 Eosinophils # (Auto) 0.9 H 0.0-0.3 10^3/uL Basophils # (Auto) 0.1 0.0-0.1 10^3/uL Sodium Level 141 135-145 MMOL/L Potassium Level 4.0 3.6-5.0 MMOL/L Chloride Level 111 H 98-107 MMOL/L Carbon Dioxide Level 20 L 21-32 MMOL/L Anion Gap 10 5-14 MMOL/L Blood Urea Nitrogen 8 7-18 MG/DL Creatinine 0.77 0.60-1.30 MG/DL Estimat Glomerular Filtration Rate > 60 BUN/Creatinine Ratio 10 Glucose Level 92 70-105 MG/DL Calcium Level 9.1 8.5-10.1 MG/DL Corrected Calcium 9.1 8.5-10.1 MG/DL Total Bilirubin 0.3 0.1-1.0 MG/DL Aspartate Amino Transf (AST/SGOT) 14 5-34 U/L Alanine Aminotransferase (ALT/SGPT) 12 0-55 U/L Alkaline Phosphatase 48 40-136 U/L C-Reactive Protein High Sensitivity 0.09 0.00-0.50 MG/DL Total Protein 6.5 6.4-8.2 GM/DL Albumin 4.0 3.2-4.5 GM/DL Serum Test, Qualitative NEGATIVE NEGATIVE My Orders Orders - KULDEEP WISE MD Ua Culture If Indicated (02/27/19 00:18) Urine Culture (02/27/19 00:45) Hcg,Qualitative Urine (02/27/19 01:43) Cbc With Automated Diff (02/27/19 01:52) Comprehensive Metabolic Panel (02/27/19 01:52) Hs C Reactive Protein (02/27/19 01:52) Hcg,Qualitative Serum (02/27/19 01:52) Ed Iv/Invasive Line Start (02/27/19 01:52) Ciprofloxacin Tablet (Cipro Tablet) (02/27/19 03:15) Ketorolac Injection (Toradol Injection) (02/27/19 03:15) Vital Signs/I&O 02/27/19 02/27/19 00:44 03:13 Temp 100.6 98.1 Pulse 75 57 Resp 17 17 B/P (MAP) 105/67 (80) 112/64 (80) Pulse Ox 100 100 O2 Delivery Room Air Room Air Blood Pressure Mean: 80 Progress Progress Note : Progress Note Workup was unremarkable except for suggestion of urinary tract infection. This was treated with Cipro. Pain was treated with Toradol. Departure Impression Primary Impression: Urinary tract infection Qualified Codes: N39.0 - Urinary tract infection, site not specified Additional Impressions: Lower abdominal pain Nausea and vomiting Qualified Codes: R11.2 - Nausea with vomiting, unspecified Disposition: HOME, SELF-CARE Condition: Improved Departure-Patient Inst. Decision time for Depature: 03:04 Referrals: [facility] (PCP/Family) Primary Care Physician Patient Instructions: Acute Abdomen (Belly Pain), Adult (DC), Urinary Tract Infections in Adults Add. Discharge Instructions: Drink plenty of clear liquids. Complete your antibiotics as prescribed. For nausea and vomiting you may use Zofran (ondansetron) as prescribed. Follow-up with your primary care provider in the next week. Return to care if you have worsening symptoms. All discharge instructions reviewed with patient and/or family. Voiced understanding. Scripts Ondansetron (Ondansetron Odt) 4 Mg Tab.rapdis 4 MG PO Q4H PRN for NAUSEA/VOMITING-1ST LINE, #10 TAB Prov: KULDEEP WISE MD 02/27/19 Ciprofloxacin HCl (Ciprofloxacin HCl) 500 Mg Tablet 500 MG PO BID, #14 TAB Prov: KULDEEP WISE MD 02/27/19 KULDEEP WISE MD Feb 27, 2019 03:09
[2019-02-27 03:13] VITALS: BP 112/64
[2019-02-27] MEDS ORDERED: CIPROFLOXACIN 500 MG (CIPRO) TABLET PO ONE (03:15)
[2019-02-27] MEDS ORDERED: KETOROLAC 30 MG/ML VIAL IVP ONE (03:15)
== END 2019-02-27 03:13 | disposition home or self-care (01) ==
LOC: EDUNIT# 23:33 → ER 23:39
DX: N39.0 Urinary tract infection, site not specified (principal); R11.2 Nausea with vomiting, unspecified; G43.909 Migraine, unspecified, not intractable, without status migrainosus; K21.9 Gastro-esophageal reflux disease without esophagitis; F41.9 Anxiety disorder, unspecified; Z88.1 Allergy status to other antibiotic agents; Z88.8 Allergy status to other drugs, medicaments and biological substances; Z79.52 Long term (current) use of systemic steroids; Z87.891 Personal history of nicotine dependence
CPT/HCPCS: 36415; 80053; 81000; 84703; 85025; 86141; 87088

== ENCOUNTER 2019-09-23 08:20 | Emergency (ER) | payer MEDICAID ==
[~2019-09-23] VITALS: Ht 170 cm; Wt 64.4 kg
[~2019-09-23 08:20] MED LIST changes: +CIPR500T4 PO; +ONDA4TAB11 PO; -TRAM50TA2 PO; +TRM50T PO
[2019-09-23] MEDS ORDERED: NORG1TAB14 (08:48)
--- NOTE | 2019-09-23 08:56 | ED Head Injury ---
General Chief Complaint: Head/Cervical Problems Stated Complaint: HEAD INJ Nursing Triage Note: STATES SHE WAS HELPING A FRIEND SET UP A BED AND THE HEAD BOARD HIT HER ON THE TOP OF THE HEAD. SINCE THEN SHE HAS HAD RINING IN THE EARS AND PAIN. STATES SHE IS SUPPOSE TO WORK TODAY. Source: patient Exam Limitations: no limitations History of Present Illness Date Seen by Provider: Sep 23, 2019 Time Seen by Provider: 08:42 Initial Comments Patient presents to ER by private conveyance from home with chief complaint that she's had a migraine in the past day or so and yesterday was helping someone load a bed up and was struck in the left frontal forehead with the headboard. She did not get knocked out she saw stars and her vision went black for about a second. She said since then she's been irritable, having ringing in her ears, having a headache and having nausea. Allergies and Home Medications Allergies Coded Allergies: cyclobenzaprine (Verified Allergy, Intermediate, rash, 11/12/17) cephalexin (Unverified Allergy, Mild, 03/15/09) Home Medications Ondansetron 4 Mg Tab.rapdis, 4 MG PO Q6H PRN for NAUSEA/VOMITING Prescribed by: ASHELY RODRIGUEZ on 09/23/19 0859 Patient Home Medication List Home Medication List Reviewed: Yes Review of Systems Review of Systems Constitutional: No chills, No diaphoresis Eyes: Denies Blindness, Denies Blurred Vision Ears, Nose, Mouth, Throat: denies ear pain, denies ear discharge Respiratory: No cough, No short of breath Cardiovascular: No chest pain, No edema Gastrointestinal: No abdominal pain; nausea; No vomiting Genitourinary: No discharge, No dysuria Past Hmtyljb-Pgnrhf-Dtovbv Hx Patient Social History Alcohol Use: Rarely Uses Alcohol Beverage of Choice: Beer Recreational Drug Use: No Smoking Status: Current Everyday Smoker Type Used: Cigarettes Former Smoker, Quit: Jun 15, 2016 2nd Hand Smoke Exposure: Yes Recent Foreign Travel: No Contact w/Someone Who Travel: No Recent Infectious Disease Expo: No Recent Hopitalizations: No Immunizations Up To Date Tetanus Booster (TDap): Unknown Date of Influenza Vaccine: May 07, 2012 Seasonal Allergies Seasonal Allergies: No Past Medical History Surgeries: Yes (wisdom teeth) Section Respiratory: No Cardiac: No Neurological: Yes Headaches /Migraines Reproductive Disorders: No (PID) Sexually Transmitted Disease: No Genitourinary: No Gastrointestinal: Yes Gastroesophageal Reflux Musculoskeletal: Yes (CHRONIC KNEE PAIN) Endocrine: Yes (Hypoglycemic) HEENT: No Hearing Impairment: Hearing Aide Right Cancer: No Psychosocial: Yes Anxiety Integumentary: No Blood Disorders: No Adverse Reaction/Blood Tranf: No Family Medical History No Pertinent Family Hx, Cancer, Diabetes Physical Exam Vital Signs Vital Signs - First Documented 09/23/19 08:40 Temp 37.0 Pulse 66 Resp 16 B/P (MAP) 103/64 (77) Pulse Ox 97 O2 Delivery Room Air Capillary Refill : Less Than 3 Seconds Height, Weight, BMI Height: 5'7.00" Weight: 138lbs. 2.0oz. 62.523361jg; 22.00 BMI Method:Stated General Appearance: WD/WN, no apparent distress HEENT: PERRL/EOMI, normal ENT inspection, TMs normal, pharynx normal, other (and atraumatic head) Neck: non-tender, full range of motion, supple, normal inspection Cardiovascular: normal peripheral pulses, regular rate, rhythm Respiratory: lungs clear, normal breath sounds, no respiratory distress, no accessory muscle use Psychiatric: alert, oriented x 3 [place] Nerves: normal hearing, normal speech, PERRL Coordination/Gait: normal gait Motor/Sensory: no motor deficit, no sensory deficit Marianela Coma Score Best Eye Response: (4) Open Spontaneously Best Verbal Response: (5) Oriented Best Motor Response: (6) Obeys Commands [place] Total: 15 Progress/Results/Core Measures Results/Orders Vital Signs/I&O 09/23/19 09/23/19 08:40 09:09 Temp 37.0 37.0 Pulse 66 66 Resp 16 16 B/P (MAP) 103/64 (77) 103/64 (77) Pulse Ox 97 97 O2 Delivery Room Air Blood Pressure Mean: 77 Progress Progress Note : Time: 08:57 Progress Note Concussion education. Nausea medications and put her on rest for the next day or 2. Departure Impression Primary Impression: Concussion without loss of consciousness Qualified Codes: S06.0X0A - Concussion without loss of consciousness, initial encounter Disposition: 01 HOME, SELF-CARE Condition: Stable Departure-Patient Inst. Decision time for Depature: 08:57 Referrals: [facility] (PCP/Family) Primary Care Physician Patient Instructions: Concussion, Adult (DC) Add. Discharge Instructions: Drink plenty of fluids. Tylenol 1000 mg every 8 hours as needed for pain. Ibuprofen 800 mg every 8 hours as needed for pain. Zofran 1 tablet under the tongue every 6 hours as needed for nausea or vomiting. Get lots of sleep over the next day. But her brain to rest and avoid stimulation such as electronics, cell phones, Internet, TV. If you're having any symptoms of headache, dizziness, nausea etc. then you need to go lay down and get rest. Avoid further concussions. Wear your seatbelt. All discharge instructions reviewed with patient and/or family. Voiced understanding. Scripts Ondansetron (Ondansetron Odt) 4 Mg Tab.rapdis 4 MG PO Q6H PRN for NAUSEA/VOMITING, #8 TAB 0 Refills Prov: ASHELY RODRIGUEZ 09/23/19 Work/School Note: Work Release Form Date Seen in the Emergency Department: Sep 23, 2019 Return to Work: Sep 25, 2019 Restrictions: No Restrictions ASHELY RODRIGUEZ Sep 23, 2019 08:56
[2019-09-23] MEDS ORDERED: ONDA4TAB11 PO (08:59)
[2019-09-23 09:09] VITALS: BP 103/64
== END 2019-09-23 09:09 | disposition home or self-care (01) ==
LOC: EDUNIT# 08:20 → ER 08:21
DX: S06.0X0A Concussion without loss of consciousness, initial encounter (principal); R40.2142 Coma scale, eyes open, spontaneous, at arrival to emergency department; R40.2252 Coma scale, best verbal response, oriented, at arrival to emergency department; R40.2362 Coma scale, best motor response, obeys commands, at arrival to emergency department; F17.210 Nicotine dependence, cigarettes, uncomplicated; Z88.1 Allergy status to other antibiotic agents; Z88.8 Allergy status to other drugs, medicaments and biological substances; W22.8XXA Striking against or struck by other objects, initial encounter
CPT/HCPCS: 99282

== ENCOUNTER 2019-12-29 17:05 | Emergency (ER) | payer MEDICAID ==
[~2019-12-29] VITALS: Ht 170.1 cm; Wt 60.4 kg
[~2019-12-29 17:05] MED LIST changes: +NORG1TAB14
--- NOTE | 2019-12-29 17:21 | ED Abdominal Pain ---
General Stated Complaint: R SIDE PAIN/NAUSEA Source of Information: Patient Exam Limitations: No Limitations History of Present Illness Date Seen by Provider: Dec 29, 2019 Time Seen by Provider: 17:19 Initial Comments To ER with right lateral abdominal pain present for 3 days constant all the time and occasionally worsened by sharp shooting pains. She does have nausea. She's had some constipation as well. No fevers. Timing/Duration: 2-3 Days Severity/Quality: Moderate Location: RLQ Radiation: No Radiation Activities at Onset: None Associated Symptoms: Nausea/Vomiting Allergies and Home Medications Allergies Coded Allergies: cyclobenzaprine (Verified Allergy, Intermediate, rash, 11/12/17) cephalexin (Unverified Allergy, Mild, 03/15/09) Home Medications Ondansetron 4 Mg Tab.rapdis, 4 MG PO Q6H PRN for NAUSEA/VOMITING Prescribed by: ASHELY RODRIGUEZ on 09/23/19 0859 Patient Home Medication List Home Medication List Reviewed: Yes Review of Systems Review of Systems Constitutional: see HPI EENTM: No Symptoms Reported Respiratory: No Symptoms Reported Cardiovascular: No Symptoms Reported Gastrointestinal: See HPI, Abdominal Pain, Nausea Genitourinary: No Symptoms Reported Musculoskeletal: no symptoms reported Skin: no symptoms reported Psychiatric/Neurological: No Symptoms Reported Endocrine: No Symptoms Reported Hematologic/Lymphatic: No Symptoms Reported Past Vzlitgc-Pdbebf-Uehzkt Hx Patient Social History Alcohol Beverage of Choice: Beer Type Used: Cigarettes Former Smoker, Quit: Jun 15, 2016 2nd Hand Smoke Exposure: Yes Recent Foreign Travel: No Contact w/Someone Who Travel: No Recent Hopitalizations: No Immunizations Up To Date Tetanus Booster (TDap): Unknown Date of Influenza Vaccine: May 07, 2012 Seasonal Allergies Seasonal Allergies: No Past Medical History Surgeries: Yes (wisdom teeth) Section Respiratory: No Cardiac: No Neurological: Yes Headaches /Migraines Reproductive Disorders: No (PID) Sexually Transmitted Disease: No Genitourinary: No Gastrointestinal: Yes Gastroesophageal Reflux Musculoskeletal: Yes (CHRONIC KNEE PAIN) Endocrine: Yes (Hypoglycemic) HEENT: No Hearing Impairment: Hearing Aide Right Cancer: No Psychosocial: Yes Anxiety Integumentary: No Blood Disorders: No Adverse Reaction/Blood Tranf: No Family Medical History No Pertinent Family Hx, Cancer, Diabetes Physical Exam Vital Signs Vital Signs - First Documented 12/29/19 17:11 Temp 36.9 Pulse 72 Resp 18 B/P (MAP) 125/64 (84) Pulse Ox 98 O2 Delivery Room Air Capillary Refill : Height/Weight/BMI Height: 5'7.00" Weight: 138lbs. 2.0oz. 62.851585ho; 22.00 BMI Method:Stated General Appearance: WD/WN, no apparent distress HEENT: PERRL/EOMI, normal ENT inspection Respiratory: no respiratory distress, no accessory muscle use Gastrointestinal: normal bowel sounds, soft Extremities: normal range of motion, non-tender Neurologic/Psychiatric: alert, normal mood/affect, oriented x 3 Skin: normal color, warm/dry Progress/Results/Core Measures Results/Orders Lab Results Laboratory Tests Test 12/29/19 17:20 12/29/19 17:30 Range/Units White Blood Count 9.2 4.3-11.0 10^3/uL Red Blood Count 4.72 4.35-5.85 10^6/uL Hemoglobin 14.5 11.5-16.0 G/DL Hematocrit 42 35-52 % Mean Corpuscular Volume 90 80-99 FL Mean Corpuscular Hemoglobin 31 25-34 PG Mean Corpuscular Hemoglobin Concent 34 32-36 G/DL Red Cell Distribution Width 13.4 10.0-14.5 % Platelet Count 224 130-400 10^3/uL Mean Platelet Volume 9.2 7.4-10.4 FL Neutrophils (%) (Auto) 60 42-75 % Lymphocytes (%) (Auto) 29 12-44 % Monocytes (%) (Auto) 8 0-12 % Eosinophils (%) (Auto) 3 0-10 % Basophils (%) (Auto) 0 0-10 % Neutrophils # (Auto) 5.5 1.8-7.8 X 10^3 Lymphocytes # (Auto) 2.6 1.0-4.0 X 10^3 Monocytes # (Auto) 0.7 0.0-1.0 X 10^3 Eosinophils # (Auto) 0.3 0.0-0.3 10^3/uL Basophils # (Auto) 0.0 0.0-0.1 10^3/uL Sodium Level 139 135-145 MMOL/L Potassium Level 3.6 3.6-5.0 MMOL/L Chloride Level 110 H 98-107 MMOL/L Carbon Dioxide Level 20 L 21-32 MMOL/L Anion Gap 9 5-14 MMOL/L Blood Urea Nitrogen 10 7-18 MG/DL Creatinine 0.76 0.60-1.30 MG/DL Estimat Glomerular Filtration Rate > 60 BUN/Creatinine Ratio 13 Glucose Level 86 70-105 MG/DL Calcium Level 9.1 8.5-10.1 MG/DL Corrected Calcium 8.9 8.5-10.1 MG/DL Total Bilirubin 0.4 0.1-1.0 MG/DL Aspartate Amino Transf (AST/SGOT) 15 5-34 U/L Alanine Aminotransferase (ALT/SGPT) 15 0-55 U/L Alkaline Phosphatase 46 40-136 U/L C-Reactive Protein High Sensitivity 0.12 0.00-0.50 MG/DL Total Protein 6.7 6.4-8.2 GM/DL Albumin 4.3 3.2-4.5 GM/DL Lipase 45 8-78 U/L Serum Test, Qualitative NEGATIVE NEGATIVE Urine Color YELLOW Urine Clarity CLEAR Urine pH 7.0 5-9 Urine Specific [place] 1.020 1.016-1.022 Urine Protein NEGATIVE NEGATIVE Urine Glucose (UA) NEGATIVE NEGATIVE Urine Ketones NEGATIVE NEGATIVE Urine Nitrite NEGATIVE NEGATIVE Urine Bilirubin NEGATIVE NEGATIVE Urine Urobilinogen 0.2 < = 1.0 MG/DL Urine Leukocyte Esterase 2+ H NEGATIVE Urine RBC (Auto) NEGATIVE NEGATIVE Urine RBC NONE /HPF Urine WBC 2-5 /HPF Urine Squamous Epithelial Cells 5-10 /HPF Urine Crystals PRESENT H /LPF Urine Amorphous Sediment FEW ELYSIA PHOSPHATE H /LPF Urine Bacteria TRACE /HPF Urine Casts NONE /LPF Urine Mucus NEGATIVE /LPF Urine Culture Indicated NO My Orders Orders - KANCHAN CHE [employer] Cbc With Automated Diff (12/29/19 17:13) Comprehensive Metabolic Panel (12/29/19 17:13) Ua Culture If Indicated (12/29/19 17:13) Lipase (12/29/19 17:13) Ed Iv/Invasive Line Start (12/29/19 17:13) Hs C Reactive Protein (12/29/19 17:13) Hcg,Qualitative Serum (12/29/19 17:13) Ns Iv 1000 Ml (Sodium Chloride 0.9%) (12/29/19 17:30) Ondansetron Injection (Zofran Injectio (12/29/19 17:30) Ketorolac Injection (Toradol Injection) (12/29/19 17:30) Ct Abd/Pelv W (Appendicitis) (12/29/19 17:23) Ondansetron Injection (Zofran Injectio (12/29/19 18:15) Fentanyl Injection (Sublimaze Injection (12/29/19 18:15) Iohexol Injection (Omnipaque 350 Mg/Ml 1 (12/29/19 18:15) Received Contrast (Hold Metformin- Contr (12/29/19 18:15) Ns (Ivpb) (Sodium Chloride 0.9% Ivpb Bag (12/29/19 18:15) Medications Given in ED Current Medications Medications Dose Ordered Sig/Kathrine Route Start Time Stop Time Status Last Admin Dose Admin Fentanyl Citrate 50 mcg ONCE ONCE IVP 12/29/19 18:15 12/29/19 18:16 DC 12/29/19 18:19 50 MCG Iohexol 100 ml ONCE ONCE IV 12/29/19 18:15 12/29/19 18:17 DC 12/29/19 18:51 77 ML Ketorolac Tromethamine 15 mg ONCE ONCE IVP 12/29/19 17:30 12/29/19 17:31 DC 12/29/19 17:32 15 MG Ondansetron HCl 4 mg ONCE ONCE IVP 12/29/19 17:30 12/29/19 17:31 DC 12/29/19 17:31 4 MG Ondansetron HCl 4 mg ONCE ONCE IVP 12/29/19 18:15 12/29/19 18:16 DC 12/29/19 18:17 4 MG Sodium Chloride 100 ml ONCE ONCE IV 12/29/19 18:15 12/29/19 18:17 DC 12/29/19 18:51 80 ML Vital Signs/I&O 12/29/19 17:11 Temp 36.9 Pulse 72 Resp 18 B/P (MAP) 125/64 (84) Pulse Ox 98 O2 Delivery Room Air Departure Impression Primary Impression: Right lower quadrant abdominal pain Disposition: 01 HOME, SELF-CARE Condition: Stable Departure-Patient Inst. Decision time for Depature: 19:31 Referrals: [facility] (PCP/Family) Primary Care Physician Patient Instructions: Acute Abdomen (Belly Pain) Add. Discharge Instructions: 1. Return to ER for any intolerable pain fevers or any other concerns. Call your doctor tomorrow to make an appointment for follow-up. Work/School Note: Work Release Form Date Seen in the Emergency Department: Dec 29, 2019 Return to Work: Dec 31, 2019 KANCHAN CHE APRN Dec 29, 2019 17:21
[2019-12-29 17:29] LABS: BASOPHILS % (AUTO) 0 % (0-10); EOSINOPHILS # (AUTO) 0.3 10^3/uL (0.0-0.3); EOSINOPHILS % (AUTO) 3 % (0-10); HEMATOCRIT 42 % (35-52); HEMOGLOBIN 14.5 G/DL (11.5-16.0); LYMPHOCYTES # (AUTO) 2.6 X 10^3 (1.0-4.0); LYMPHOCYTES % (AUTO) 29 % (12-44); MEAN CORPUSCULAR HEMOGLOBIN 31 PG (25-34); MEAN CORPUSCULAR HGB CONC 34 G/DL (32-36); MEAN CORPUSCULAR VOLUME 90 FL (80-99); MEAN PLATELET VOLUME 9.2 FL (7.4-10.4); MONOCYTES # (AUTO) 0.7 X 10^3 (0.0-1.0); MONOCYTES % (AUTO) 8 % (0-12); NEUTROPHILS # (AUTO) 5.5 X 10^3 (1.8-7.8); NEUTROPHILS % (AUTO) 60 % (42-75); PLATELET COUNT 224 10^3/uL (130-400); RED CELL DISTRIBUTION WIDTH 13.4 % (10.0-14.5); WHITE BLOOD COUNT 9.2 10^3/uL (4.3-11.0)
[2019-12-29] MEDS ORDERED: ONDANSETRON 4 MG/2 ML (SDV) Z0FRAN IVP ONE ×2 (17:30→18:15)
[2019-12-29] MEDS ORDERED: NS IV 1000 ML 1,000 ML IV SCH (17:30)
[2019-12-29] MEDS ORDERED: KETOROLAC 30 MG/ML VIAL IVP ONE (17:30)
[2019-12-29 17:44] LABS: ALBUMIN 4.3 GM/DL (3.2-4.5); CHLORIDE 110 MMOL/L (98-107); POTASSIUM 3.6 MMOL/L (3.6-5.0); SODIUM 139 MMOL/L (135-145)
[2019-12-29 17:44] LABS: BILIRUBIN,URINE NEGATIVE (NEGATIVE); CLARITY,URINE CLEAR; COLOR,URINE YELLOW; GLUCOSE, URINE (UA) NEGATIVE (NEGATIVE); KETONES,URINE NEGATIVE (NEGATIVE); LEUKOCYTE ESTERASE ,URINE 2+ (NEGATIVE); NITRITE,URINE NEGATIVE (NEGATIVE); PROTEIN,URINE NEGATIVE (NEGATIVE)
[2019-12-29 17:45] LABS: CALCIUM 9.1 MG/DL (8.5-10.1)
[2019-12-29 17:46] LABS: GLUCOSE 86 MG/DL (70-105); TOTAL PROTEIN 6.7 GM/DL (6.4-8.2)
[2019-12-29 17:47] LABS: CARBON DIOXIDE 20 MMOL/L (21-32)
[2019-12-29 17:48] LABS: BILIRUBIN,TOTAL 0.4 MG/DL (0.1-1.0)
[2019-12-29 17:50] LABS: ALKALINE PHOSPHATASE 46 U/L (40-136); CREATININE SERUM 0.76 MG/DL (0.60-1.30); GFR ESTIMATED > 60
[2019-12-29 17:51] LABS: BUN/CREATININE RATIO 13
[2019-12-29 17:52] LABS: BACTERIA,URINE TRACE /HPF
[2019-12-29 17:53] LABS: AMORPHOUS SEDIMENT,UR FEW AMOR PHOSPHATE /LPF
[2019-12-29 17:53] LABS: ALANINE AMINOTRANSFERASE 15 U/L (0-55); LIPASE 45 U/L (8-78)
[2019-12-29] MEDS ORDERED: fentaNYL INJECTION 100 MCG/2 ML AMP IVP ONE (18:15)
[2019-12-29] MEDS ORDERED: HOLD METFORMIN - RECEIVED CONTRAST 20 ML VIAL IV SCH (18:15)
[2019-12-29] MEDS ORDERED: NS 100 ML (IVPB) BAG IV ONE (18:15)
[2019-12-29] MEDS ORDERED: IOHEXOL 350 MG/ML 100 ML (OMNIPAQUE 350) VIAL IV ONE (18:15)
--- NOTE | 2019-12-29 18:50 | NUR ---
Received report from MANDO Vasquez at this time.
--- NOTE | 2019-12-29 19:25 | Diagnostic Imaging Report ---
PROCEDURE: CT abdomen and pelvis with contrast, rule out appendicitis. TECHNIQUE: Multiple contiguous axial images were obtained through the abdomen and pelvis after the administration of intravenous contrast. All CT scans use one or more of the following dose optimizing techniques: automated exposure control, MA and/or KvP adjustment based on a patient size and exam type, or iterative reconstruction. INDICATION: Right lower quadrant abdominal pain. Vomiting. COMPARISON: 03/11/2017 FINDINGS: Included portions of the lung bases show small micronodule within the subpleural posterior margins of the left lower lobe that measures 3 mm (image 2, series 2). This is stable compared to 03/11/2017. CT ABDOMEN: Normal appendix is identified. Small bowel loops are nondistended. The kidneys, adrenal glands, spleen, pancreas, and liver have a normal CT appearance. There is no loculated fluid collection, free fluid, nor free air within the abdomen. No abnormal mesenteric or retroperitoneal adenopathy is seen. Osseous structures show no acute abnormalities. CT PELVIS: Urinary bladder is grossly unremarkable. There is no loculated fluid collection, free fluid, nor free air within the pelvis. No abnormal adenopathy is seen. Osseous structures show no acute abnormalities. IMPRESSION: 1. Normal appendix. 2. No acute abnormalities are seen within the abdomen or pelvis. Dictated by: Dictated on workstation # [id number]
[2019-12-29 19:38] VITALS: BP 125/64
== END 2019-12-29 19:38 | disposition home or self-care (01) ==
LOC: EDUNIT# 17:05 → ER 17:06
DX: R10.31 Right lower quadrant pain (principal); Z88.1 Allergy status to other antibiotic agents; Z87.891 Personal history of nicotine dependence; Z77.22 Contact with and (suspected) exposure to environmental tobacco smoke (acute) (chronic)
CPT/HCPCS: 36415; 74177; 80053; 81000; 83690; 84703; 85025; 86141

== ENCOUNTER 2021-06-25 16:37 | Emergency (ER) | payer MEDICAID ==
[~2021-06-25] VITALS: Ht 170.2 cm; Wt 65.8 kg
[~2021-06-25 16:37] MED LIST changes: -CIPR500T4 PO; +CIPR500T5 PO; -SULF1TAB35 PO; +SULF1TAB38 PO
--- NOTE | 2021-06-25 17:07 | ED Upper Extremity ---
General Chief Complaint: Upper Extremity Stated Complaint: R SHOULDER PAIN Source: patient Exam Limitations: no limitations History of Present Illness Date Seen by Provider: Jun 25, 2021 Time Seen by Provider: 17:04 Initial Comments To ER with right shoulder pain. She states that it dislocated at the age of 14 and she has subsequently had issues with this spontaneously dislocating over the years. Typically she states that she can push on this and get it to go back into place on her own. No recent injury. No fever no chills. She has had progressive pain in the right shoulder throughout the day today. Onset: this morning Severity: moderate Pain/Injury Location: right shoulder Method of Injury: unknown Modifying Factors: Worse With Movement Allergies and Home Medications Allergies Coded Allergies: cyclobenzaprine (Verified Allergy, Intermediate, rash, 11/12/17) cephalexin (Unverified Allergy, Mild, 03/15/09) Patient Home Medication List Home Medication List Reviewed: Yes Norgestimate-Ethinyl Estradiol (Sprintec 28 Day Tablet) 1 Each Tablet, (Reported) Entered as Reported by: TOMAS BUCK on 09/23/19 0848 Ondansetron (Ondansetron Odt) 4 Mg Tab.rapdis, 4 MG PO Q6H PRN for NAUSEA/VOMITING Prescribed by: ASHELY RODRIGUEZ on 09/23/19 0859 Review of Systems Constitutional: see HPI EENTM: see HPI Respiratory: no symptoms reported Cardiovascular: no symptoms reported Genitourinary: no symptoms reported Musculoskeletal: see HPI Skin: no symptoms reported Psychiatric/Neurological: No Symptoms Reported Past Kvhxntp-Pzbtgy-Npwkae Hx Immunizations Up To Date Tetanus Booster (TDap): Unknown Seasonal Allergies Seasonal Allergies: No Past Medical History Surgeries: Yes (wisdom teeth) Section Respiratory: No Cardiac: No Neurological: Yes Headaches /Migraines Reproductive Disorders: No (PID) Sexually Transmitted Disease: No Genitourinary: No Gastrointestinal: Yes Gastroesophageal Reflux Musculoskeletal: Yes (CHRONIC KNEE PAIN) Endocrine: Yes (Hypoglycemic) HEENT: No Hearing Impairment: Hearing Aide Right Cancer: No Psychosocial: Yes Anxiety Integumentary: No Blood Disorders: No Adverse Reaction/Blood Tranf: No Family Medical History No Pertinent Family Hx, Cancer, Diabetes Physical Exam Vital Signs Vital Signs - First Documented 06/25/21 16:56 Temp 36.2 Pulse 79 Resp 18 B/P (MAP) 105/69 (81) O2 Delivery Room Air Capillary Refill : Height, Weight, BMI Height: 5'7.00" Weight: 138lbs. 2.0oz. 62.845147lx; 20.00 BMI Method:Stated General Appearance: WD/WN, no apparent distress HEENT: PERRL/EOMI, normal ENT inspection Neck: non-tender, full range of motion Respiratory: no respiratory distress, no accessory muscle use Gastrointestinal: normal bowel sounds, non tender Shoulder: No deformity; limited ROM, pain, soft tissue tenderness; No swelling Elbow/Forearm: normal inspection, non-tender Wrist: Yes normal inspection, Yes non-tender Hand: normal inspection, non-tender Neurologic/Tendon: normal sensation, normal motor functions Neurologic/Psychiatric: alert, normal mood/affect, oriented x 3 Skin: normal color, warm/dry Progress/Results/Core Measures Results/Orders My Orders Orders - KANCHAN CHE APRN Shoulder, Right, 3 Views (06/25/21 16:58) Ketorolac Injection (Toradol Injection) (06/25/21 17:15) Orphenadrine Inj (Ed Only) (Norflex Inje (06/25/21 17:15) Vital Signs/I&O 06/25/21 16:56 Temp 36.2 Pulse 79 Resp 18 B/P (MAP) 105/69 (81) O2 Delivery Room Air Departure Impression Primary Impression: Internal derangement of right shoulder Disposition: 01 HOME, SELF-CARE Condition: Stable Departure-Patient Inst. Decision time for Depature: 17:06 Referrals: [facility] (PCP/Family) Primary Care Physician NINA KENYON MD, TERRY D MD ZAFUTA, MICHAEL P MD Patient Instructions: Shoulder Pain (DC) Add. Discharge Instructions: 1. Return to ER for any concerns. Sling at all times for pain control in the meantime. Follow-up with primary care to discuss getting an MRI of the shoulder. All discharge instructions reviewed with patient and/or family. Voiced understanding. Scripts Tramadol HCl (Ultram) 50 Mg Tablet 50 MG PO Q6H PRN for PAIN-MODERATE (5-7), #10 TAB Prov: KANCHAN CHE APRN 06/25/21 Naproxen (Naproxen) 500 Mg Tablet 500 MG PO Q12H for Renal Colic for 3 Days, #30 TAB Prov: KANCHAN CHE APRN 06/25/21 KANCHAN CHE APRN Jun 25, 2021 17:07
[2021-06-25] MEDS ORDERED: KETOROLAC 60 MG/2 ML VIAL IM ONE (17:15)
[2021-06-25] MEDS ORDERED: ORPHENADRINE 60 MG/2 ML (NORFLEX) AMP (ED ONLY) IM ONE (17:15)
--- NOTE | 2021-06-25 17:23 | Diagnostic Imaging Report ---
HISTORY: Right shoulder pain, history of dislocation. COMPARISON: None. TECHNIQUE: Three views of the right shoulder. FINDINGS: No acute fracture or dislocation is seen in the right shoulder. There is mild offset without significant widening at the acromioclavicular joint. The coracoclavicular distance appears normal. Glenohumeral alignment is normal. Joint space is preserved. IMPRESSION: Subtle offset at the right acromioclavicular joint, could represent an age indeterminate type II injury. Please correlate with the site of pain. No fracture is seen. Dictated by: Dictated on workstation # [id number]
[2021-06-25] MEDS ORDERED: NAPR-915 PO (17:27)
[2021-06-25] MEDS ORDERED: TRAM-42 PO (17:27)
[2021-06-25 17:39] VITALS: BP 134/78
== END 2021-06-25 17:39 | disposition home or self-care (01) ==
LOC: EDUNIT# 16:37 → ER 16:38
DX: M24.9 Joint derangement, unspecified (principal)
CPT/HCPCS: 73030

== ENCOUNTER 2021-07-01 12:01 | Emergency (ER) | payer MEDICAID ==
[~2021-07-01] VITALS: Ht 170 cm; Wt 65.0 kg
[~2021-07-01 12:01] MED LIST changes: +NAPR-915 PO; +TRAM-42 PO
--- NOTE | 2021-07-01 12:21 | ED Upper Extremity ---
General Stated Complaint: R SHOULDER PAIN Source: patient Exam Limitations: no limitations (KANCHAN CHE APRN) History of Present Illness Date Seen by Provider: Jul 01, 2021 Time Seen by Provider: 12:20 Initial Comments To ER with ongoing right shoulder pain. I saw her here on the for the same. She believes that her shoulder dislocated and popped back into place. She had x-rays done and was told to follow-up with primary care and given a sling as well as tramadol and naproxen. She has been taking those without much relief. She has an appointment with Dr. Duff from orthopedics on next Monday. However she has increasing pain in her shoulder with any range of motion that radiates up into her neck and tingling down the arm. Onset: just prior to arrival Severity: moderate Pain/Injury Location: right shoulder Method of Injury: direct blow Modifying Factors: Worse With Movement (KANCHAN CHE APRN) Allergies and Home Medications Allergies Coded Allergies: cyclobenzaprine (Verified Allergy, Intermediate, rash, 11/12/17) cephalexin (Unverified Allergy, Mild, 03/15/09) Patient Home Medication List Home Medication List Reviewed: Yes (KANCHAN CHE APRN) Hydrocodone/Acetaminophen (Hydrocodone-Acetamin 5-325 mg) 1 Each Tablet, 1 TAB PO Q4H PRN for PAIN-MODERATE (5-7) Prescribed by: KANCHAN CHE on 07/01/21 1311 Naproxen (Naproxen) 500 Mg Tablet, 500 MG PO Q12H Prescribed by: KANCHAN CHE on 06/25/21 1727 Norgestimate-Ethinyl Estradiol (Sprintec 28 Day Tablet) 1 Each Tablet, (Reported) Entered as Reported by: TOMAS BUCK on 09/23/19 0848 Ondansetron (Ondansetron Odt) 4 Mg Tab.rapdis, 4 MG PO Q6H PRN for NAUSEA/VOMITING Prescribed by: ASHELY RODRIGUEZ on 09/23/19 0859 Tramadol HCl (Ultram) 50 Mg Tablet, 50 MG PO Q6H PRN for PAIN-MODERATE (5-7) Prescribed by: KANCHAN CHE on 06/25/21 1728 Review of Systems Constitutional: see HPI EENTM: see HPI Respiratory: no symptoms reported Cardiovascular: no symptoms reported Genitourinary: no symptoms reported Musculoskeletal: no symptoms reported Skin: no symptoms reported Psychiatric/Neurological: No Symptoms Reported (KANCHAN CHE APRN) Past Vkeubbx-Engyvb-Adrmav Hx Immunizations Up To Date Tetanus Booster (TDap): Unknown First/Initial COVID19 Vaccinat: 02/15/21 Second COVID19 Vaccination Roby: 03/08/21 (KANCHAN CHE APRN) Seasonal Allergies Seasonal Allergies: No (KANCHAN CHE APRN) Past Medical History Surgeries: Yes (wisdom teeth) Section Respiratory: No Cardiac: No Neurological: Yes Headaches /Migraines Reproductive Disorders: No (PID) Sexually Transmitted Disease: No Genitourinary: No Gastrointestinal: Yes Gastroesophageal Reflux Musculoskeletal: Yes (CHRONIC KNEE PAIN) Endocrine: Yes (Hypoglycemic) HEENT: No Hearing Impairment: Hearing Aide Right Cancer: No Psychosocial: Yes Anxiety Integumentary: No Blood Disorders: No Adverse Reaction/Blood Tranf: No (KANCHAN CHE APRN) Family Medical History No Pertinent Family Hx, Cancer, Diabetes (KANCHAN CHE APRN) Physical Exam Vital Signs Vital Signs - First Documented 07/01/21 12:26 Temp 36.3 Pulse 80 Resp 16 B/P (MAP) 118/72 (87) Pulse Ox 99 O2 Delivery Room Air (KULDEEP WISE MD) Vital Signs Capillary Refill : (KANCHAN CHE APRN) Height, Weight, BMI Height: 5'7.00" Weight: 138lbs. 2.0oz. 62.404710ms; 22.00 BMI Method:Stated General Appearance: WD/WN, no apparent distress HEENT: PERRL/EOMI, normal ENT inspection Respiratory: no respiratory distress, no accessory muscle use Shoulder: normal inspection, limited ROM, pain Hand: normal inspection, non-tender Neurologic/Psychiatric: alert, normal mood/affect, oriented x 3 Skin: normal color, warm/dry (KANCHAN CHE APRN) Procedures/Interventions Joint injection note. Posterior aspect of the glenohumeral joint was identified. This was cleansed with Betadine swabs allowed to dry then 1 mL (40 mg) of triamcinolone mixed with 2 mL of 1% lidocaine mixed with 2 mL of 0.5% bupivacaine was injected. This was a total of 5 mL injected into the joint space. (KANCHAN CHE APRN) Progress/Results/Core Measures Results/Orders Medications Given in ED Current Medications Medications Dose Ordered Sig/Kathrine Route Start Time Stop Time Status Last Admin Dose Admin Bupivacaine HCl 30 ml ONCE ONCE INJ 07/01/21 12:30 07/01/21 12:31 DC 07/01/21 12:35 30 ML Lidocaine HCl 20 ml ONCE ONCE INJ 07/01/21 12:30 07/01/21 12:31 DC 07/01/21 12:36 20 ML Triamcinolone Acetonide 40 mg ONCE ONCE IA 07/01/21 12:30 07/01/21 12:31 DC 07/01/21 12:36 40 MG (KULDEEP WISE MD) Vital Signs/I&O 07/01/21 12:26 Temp 36.3 Pulse 80 Resp 16 B/P (MAP) 118/72 (87) Pulse Ox 99 O2 Delivery Room Air (KULDEEP WISE MD) Departure Communication (Admissions) No fever no chills. Tender with range of motion of the shoulder. Her tramadol and naproxen have not helped, immobilization with a sling is minimally helpful. Offered her an injection of local anesthetic and steroid into the shoulder. She would like to proceed with this. (KANCHAN CHE APRN) Impression Primary Impression: Internal derangement of right shoulder Disposition: 01 HOME, SELF-CARE Condition: Stable Departure-Patient Inst. Decision time for Depature: 12:20 (KANCHAN CHE APRN) Referrals: [facility] [place] Primary Care Physician Patient Instructions: Shoulder Pain (DC) Add. Discharge Instructions: 1. Continue to wear the sling. Keep your appointment with orthopedics. Scripts Hydrocodone/Acetaminophen (Hydrocodone-Acetamin 5-325 mg) 1 Each Tablet 1 TAB PO Q4H PRN for PAIN-MODERATE (5-7), #10 TAB Prov: KANCHAN CHE APRN 07/01/21 ATTENDING PHYSICIAN NOTE: I was physically present as attending physician in the emergency department during the care of this patient, but I was not directly involved in the decision making or delivery of care for this patient. (KULDEEP WISE MD) KANCHAN CHE APRN Jul 01, 2021 12:21 KULDEEP WISE MD Jul 01, 2021 19:24
[2021-07-01 12:26] VITALS: BP 118/72
[2021-07-01] MEDS ORDERED: BUPIVACAINE 0.5% 30 ML (SENSORCAINE) VIAL INJ ONE (12:30)
[2021-07-01] MEDS ORDERED: TRIAMCINOLONE ACET (KENALOG-40) 40 MG/ML 1 ML VIAL IA ONE (12:30)
[2021-07-01] MEDS ORDERED: LIDOCAINE 1% INJ 20 ML 20 ML VIAL INJ ONE (12:30)
[2021-07-01] MEDS ORDERED: ACHD5005 PO (13:11)
== END 2021-07-01 13:20 | disposition home or self-care (01) ==
LOC: EDUNIT# 12:01 → ER 12:03
DX: M24.9 Joint derangement, unspecified (principal)
CPT/HCPCS: 99281

== ENCOUNTER → 2021-07-06 | Outpatient (CLI) | payer MEDICAID | LOC: ORTHO 14:19 | PROVIDERS: ATTEND Orthopaedic Surgery | DX: M25.311 Other instability, right shoulder (principal) | CPT/HCPCS: 99202 ==

== ENCOUNTER → 2021-07-15 | Outpatient (CLI) | payer MEDICAID ==
[~2021-07-15] VITALS: Ht 170.2 cm; Wt 65.9 kg
[~2021-07-15] MED LIST changes: +GADOTERATE 0.5 MMOL/ML (CLARISCAN) 15 ML VIAL IV ONE; +GADOTERATE 0.5 MMOL/ML (CLARISCAN) 5 ML VIAL IV ONE; +IOHEXOL 300 MG/ML 50 ML (OMNIPAQUE 300) VIAL IV ONE; +LIDOCAINE 1% INJ 20 ML 20 ML VIAL ONE
--- NOTE | 2021-07-15 15:02 | Diagnostic Imaging Report ---
PROCEDURE: Right shoulder injection for MRI. INDICATION: Shoulder pain. Following aseptic preparation of the skin and administration of local anesthesia, a 22-gauge needle was advanced into the glenohumeral joint using fluoroscopic guidance. Subsequently, an 11 mL mixture of sodium chloride, Omnipaque, and Gadavist was infused. The patient tolerated the procedure well and was sent to the MR suite in good condition. There are 23.9 seconds of fluoroscopy time utilized. IMPRESSION: There has been successful injection of the right glenohumeral joint. MRI is pending for further study. Dictated by: Dictated on workstation # [id number]
--- NOTE | 2021-07-19 08:44 | Diagnostic Imaging Report ---
EXAMINATION: Magnetic resonance imaging of the right shoulder with intra-articular contrast. DATE: July 15, 2021. COMPARISON: Right shoulder arthrogram July 15, 2021. Right shoulder radiographs June 25, 2021. HISTORY: 30-year-old female, right shoulder pain. TECHNIQUE: Magnetic Resonance Imaging sequences were performed of the shoulder following the intra-articular administration of contrast. FINDINGS: ROTATOR CUFF, LIGAMENTS, TENDONS, AND MUSCLES: The supraspinatus, infraspinatus, teres minor, and subscapularis tendons and muscles are intact. There is normal rotator cuff muscle bulk and signal. LONG HEAD OF BICEPS: The biceps labral attachment and long head of the biceps tendon is intact. The long head of the biceps tendon is normally positioned within the bicipital groove. GLENOHUMERAL JOINT: The humeral head is well positioned relative to the glenoid. The labrum is intact. There is no identified paralabral cyst. There is abnormal extension of contrast below the expected location of the axillary pouch without identified intact humeral attachment of the posterior band of the inferior glenohumeral ligament complex. Findings are compatible with a tear of the humeral attachment of the posterior band of the inferior glenohumeral ligament complex. The anterior band of the inferior glenohumeral ligament complex appears intact. The articular cartilage appears intact. There is no intra-articular body or prominent synovitis. ACROMIOCLAVICULAR JOINT: The acromioclavicular joint is normally aligned. The coracoclavicular and coracoacromial ligaments are intact. There are no degenerative changes of the acromioclavicular joint. BONE: There is no os acromiale. There is no Hill-Sachs deformity. There is no acute fracture, bone contusion, or evidence of osteonecrosis. BURSAE AND SOFT TISSUES: Additional bursal and soft tissue assessment is unremarkable. IMPRESSION: 1. Tear of the humeral attachment of the posterior band of the inferior glenohumeral ligament complex. The anterior band is intact. 2. Intact labrum and unremarkable additional glenohumeral joint assessment. 3. Intact rotator cuff and proximal long head of biceps tendon. 4. Intact acromioclavicular joint. 5. Normal osseous morphology. No acute fracture, bone contusion, or other notable bone marrow signal abnormality. Dictated by: Dictated on workstation # [id number]
== END ==
LOC: RAD 12:45
PROVIDERS: ATTEND Orthopaedic Surgery
DX: S43.031A Inferior subluxation of right humerus, initial encounter (principal); X58.XXXA Exposure to other specified factors, initial encounter
CPT/HCPCS: 23350; 73040; 73222

== ENCOUNTER 2021-08-13 11:40 | Outpatient (RCR) | payer MEDICAID ==
[~2021-08-13 11:40] MED LIST changes: -GADOTERATE 0.5 MMOL/ML (CLARISCAN) 15 ML VIAL IV ONE; -GADOTERATE 0.5 MMOL/ML (CLARISCAN) 5 ML VIAL IV ONE; -IOHEXOL 300 MG/ML 50 ML (OMNIPAQUE 300) VIAL IV ONE; -LIDOCAINE 1% INJ 20 ML 20 ML VIAL ONE
== END 2021-08-16 | disposition home or self-care (01) ==
PROVIDERS: ATTEND Orthopaedic Surgery
DX: M25.311 Other instability, right shoulder (principal)

== ENCOUNTER 2021-09-07 13:54 | Outpatient (RCR) | payer MEDICAID | END 2021-09-13 | disposition home or self-care (01) | PROVIDERS: ATTEND Orthopaedic Surgery | DX: M25.311 Other instability, right shoulder (principal) ==

== ENCOUNTER 2021-09-27 14:15 | Outpatient (RCR) | payer MEDICAID | END 2021-10-14 | disposition home or self-care (01) | PROVIDERS: ATTEND Orthopaedic Surgery | DX: M25.311 Other instability, right shoulder (principal) ==

== ENCOUNTER 2021-11-12 14:43 | Outpatient (RCR) | payer MEDICAID | END 2021-11-13 | disposition home or self-care (01) | PROVIDERS: ATTEND Orthopaedic Surgery | DX: Z96.611 Presence of right artificial shoulder joint (principal) ==

== ENCOUNTER 2021-12-10 13:43 | Outpatient (RCR) | payer MEDICAID | END 2021-12-14 | disposition home or self-care (01) | PROVIDERS: ATTEND Orthopaedic Surgery | DX: Z96.611 Presence of right artificial shoulder joint (principal) ==

== ENCOUNTER 2022-01-04 22:25 | Emergency (ER) | payer MEDICAID ==
[~2022-01-04] VITALS: Ht 171 cm; Wt 65.7 kg
[2022-01-04 22:34] VITALS: BP 107/67
--- NOTE | 2022-01-04 22:39 | ED Lower Extremity ---
General Stated Complaint: FOOT INJURY Source: patient History of Present Illness Date Seen by Provider: Jan 04, 2022 Time Seen by Provider: 22:33 Initial Comments PT ARRIVES VIA POV FROM HOME STATES SHE WAS ON A RIVER FLOAT TRIP TODAY, AND AROUND 1500, SHE SMASHED HER RIGHT FOOT ON A ROCK PT WAS BAREFOOT AT THE TIME SHE HAS HAD INCREASING PAIN AND SWELLING TO THE FOOT NO PARESTHESIAS OR MOTOR DEFICITS NO PRIOR INJURY TO THIS FOOT NO OTHER INJURIES FROM THE INCIDENT PT HAS NOT TAKEN ANYTHING FOR PAIN LAST TETANUS > 10 YEARS. PCP: CANDIDO-[facility] Allergies and Home Medications Allergies Coded Allergies: cyclobenzaprine (Verified Allergy, Intermediate, rash, 11/12/17) cephalexin (Unverified Allergy, Mild, 03/15/09) Patient Home Medication List Home Medication List Reviewed: Yes Hydrocodone/Acetaminophen (Hydrocodone-Acetamin 5-325 mg) 1 Each Tablet, 1 TAB PO Q4H PRN for PAIN-MODERATE (5-7) Prescribed by: KANCHAN CHE on 07/01/21 1311 Naproxen (Naproxen) 500 Mg Tablet, 500 MG PO Q12H Prescribed by: KANCHAN CHE on 06/25/21 1727 Norgestimate-Ethinyl Estradiol (Sprintec 28 Day Tablet) 1 Each Tablet, (Reported) Entered as Reported by: TOMAS BUCK on 09/23/19 0848 Ondansetron (Ondansetron Odt) 4 Mg Tab.rapdis, 4 MG PO Q6H PRN for NAUSEA/VO MITING Prescribed by: ASHELY RODRIGUEZ on 09/23/19 0859 Tramadol HCl (Ultram) 50 Mg Tablet, 50 MG PO Q6H PRN for PAIN-MODERATE (5-7) Prescribed by: KANCHAN CHE on 06/25/21 1728 Review of Systems Constitutional: no symptoms reported Musculoskeletal: see HPI Skin: other (TINY SCABBED ABRASIONS TO TOP OF RIGHT FOOT) Psychiatric/Neurological: No Symptoms Reported Past Cngrjvn-Xhsehp-Aicrmn Hx Immunizations Up To Date Tetanus Booster (TDap): Unknown First/Initial COVID19 Vaccinat: 02/15/21 Second COVID19 Vaccination Roby: 03/08/21 Seasonal Allergies Seasonal Allergies: No Past Medical History Surgeries: Yes (wisdom teeth) Section Respiratory: No Cardiac: No Neurological: Yes Headaches /Migraines Reproductive Disorders: Yes 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 2.0oz. [id number]; 22.74 BMI Method:Stated General Appearance: WD/WN, no apparent distress Ankles: right ankle normal inspection Feet: right foot other (DORSAL ASPECT OF RIGHT FOOT, WITH TENDERNESS AND MILD SWELLING. HAS 2 SMALL SUPERFICIAL SCABBED ABRASIONS TO DORSUM OF RIGHT FOOT. NO SIGNS OF INFECTION. NO BRUISING. LIMITED ROM DUE TO PAIN, BUT SENSORY AND VASCULAR INTACT. NO OBVIOUS INJURY TO PLANTAR ASPECT OF FOOT OR TO TOES. ) Neurologic/Tendon: normal sensation Neurologic/Psychiatric: inspector machine parts II-XII nml as tested, alert, normal mood/affect, oriented x 3 Skin: normal color, warm/dry, other (ABRASIONS NOTED ABOVE) Procedures/Interventions Splinting and Joint Reduction : Cristopher wrap: Yes Immobilizers: Step Light Walker s/m/lg Ordered: Crutches Progress/Results/Core Measures Results/Orders My Orders Orders - ANA M PATEL DO Dipht,Perttomi(Acell),Tet Adult (Boostrix (01/04/22 22:45) Foot, Right, 3 View (01/04/22 22:36) Vital Signs/I&O 01/04/22 22:34 Temp 36.5 Pulse 90 Resp 18 B/P (MAP) 107/67 (80) Pulse Ox 98 Diagnostic Imaging Comments XRAYS RIGHT FOOT--PER RADIOLOGIST REPORT AT 2309 FINDINGS: 3 views of the foot. There is an osseous fragment adjacent to the dorsal aspect of the navicular which is stable since previous imaging. There is questioned irregularity at the base of the 2nd metatarsal on the 1st view. If there is focal point tenderness, CT recommended for further characterization as a fracture in the region is difficult to exclude. The remaining osseous structures unremarkable. IMPRESSION: 1. Mild irregularity at the base of the 2nd metatarsal which could be caused by superimposed osseous structures with a fracture not excluded. See above recommendations. Reviewed: Reviewed by Me Departure Impression Primary Impression: Ehjwgkzitt-xlypssbcs-jllvzgi (DPT) vaccination administered at current visit Additional Impressions: Contusion of right foot, initial encounter POSSIBLE METATARSAL FRACTURE OF RIGHT FOOT Skin abrasion Disposition: HOME, SELF-CARE Condition: Stable Departure-Patient Inst. Decision time for Depature: 23:10 Referrals: SOFIA ROMERO MD Patient Instructions: Contusion (DC), Diphtheria and Tetanus Toxoids, and Acellular Pertussis Vaccine, Foot Fracture ED, Going Up and Down Curbs or Stairs With a Walker or Crutches, How to Use Crutches, Skin Abrasions (DC), Walking Boot Add. Discharge Instructions: ICE TO SORE AREA AT 20 MINUTE INTERVALS WEAR BOOT AND USE CRUTCHES AT ALL TIMES FOLLOW UP WITH DR. ROMERO IN 1 WEEK FOR FURTHER CARE--CALL IN THE MORNING TO SCHEDULE APPOINTMENT Scripts Tramadol HCl (Ultram) 50 Mg Tablet 50 MG PO Q4H for Pain, #20 TAB Prov: ANA M PATEL DO 01/04/22 Images Extremities-Lower 1 - Abrasion, Swelling, Tenderness ANA M PATEL DO Jan 04, 2022 22:39
[2022-01-04] MEDS ORDERED: TETANUS,DIPTH,PERTUSS P/F (BOOSTRIX) 0.5 ML VIAL IM ONE (22:45)
--- NOTE | 2022-01-04 23:05 | Diagnostic Imaging Report ---
INDICATION: Injury to the top of the foot. Pain. EXAMINATION: Right foot 01/04/2022 COMPARISON: 10/24/2017 FINDINGS: 3 views of the foot. There is an osseous fragment adjacent to the dorsal aspect of the navicular which is stable since previous imaging. There is questioned irregularity at the base of the 2nd metatarsal on the 1st view. If there is focal point tenderness, CT recommended for further characterization as a fracture in the region is difficult to exclude. The remaining osseous structures unremarkable. IMPRESSION: 1. Mild irregularity at the base of the 2nd metatarsal which could be caused by superimposed osseous structures with a fracture not excluded. See above recommendations. Dictated by: Dictated on workstation # [id number]
[2022-01-04] MEDS ORDERED: TRAM-42 PO (23:18)
== END 2022-01-04 23:59 | disposition home or self-care (01) ==
LOC: EDUNIT# 22:25 → ER 22:29
DX: S90.31XA Contusion of right foot, initial encounter (principal); Z23 Encounter for immunization; W22.8XXA Striking against or struck by other objects, initial encounter; Y92.828 Other wilderness area as the place of occurrence of the external cause
CPT/HCPCS: 73630

== ENCOUNTER 2022-01-07 12:46 | Outpatient (RCR) | payer MEDICAID | END 2022-01-13 | disposition home or self-care (01) | PROVIDERS: ATTEND Orthopaedic Surgery | DX: M25.511 Pain in right shoulder (principal); Z96.611 Presence of right artificial shoulder joint; Z98.890 Other specified postprocedural states ==